=== PATIENT | male | born 1955 | race Caucasian/White ===

== ENCOUNTER 2018-12-08 | Inpatient (IN) ==
[2018-12-08] MEDS ORDERED: DUONEB NEB STA (00:10)
[2018-12-08] MEDS ORDERED: SOLU-MEDROL 125 MG IVP STA (00:10)
--- NOTE | 2018-12-08 00:17 | ED.PDOC ---
General ED Provider: Dr. CAROLYN BACA Chief Complaint: Shortness of Air Stated Complaint: Shortness of breath x 2 weeks but suddenlty got worse just prior to arrival with cough productive of thick green/yellow sputum, also complains of chills. Time Seen by Physician: 00:15 Mode of Arrival: Walk-In Information Source: Patient Exam Limitations: No limitations Nursing and Triage Documentation Reviewed and Agree: Yes Does patient meet sepsis criteria?: No System Inflammatory Response Syndrome: Not Applicable Sepsis Protocol: For patient's 13 years and over: Temp is 96.8 and below OR 101 and greater Pulse >90 BPM Resp >20/minute Acutely Altered Mental Status Are patient's symptoms suggestive of a new infection, such as: -Pneumonia -Skin, Soft Tissue -Endocarditis -UTI -Bone, Joint Infection -Implantable Device -Acute Abdominal Infection -Wound Infection -Meningitis -Blood Stream Catheter Infection -Unknown Review of Systems - Review Of Systems Constitutional: Reports: No symptoms Eyes: Reports: No symptoms Ears, Nose, Mouth, Throat: Reports: No symptoms Respiratory: Reports: Cough, Short of air, Wheezing Cardiac: Reports: No symptoms GI: Reports: No symptoms : Reports: No symptoms Musculoskeletal: Reports: No symptoms Skin: Reports: No symptoms Neurological: Reports: No symptoms Endocrine: Reports: No symptoms Hematologic/Lymphatic: Reports: No symptoms All Other Systems: Reviewed and Negative Past Medical History - Past Medical History Previously Healthy: Yes Endocrine: Reports: DM 2, Dyslipidemia Cardiovascular: Reports: CAD, Hypertension, A-Fib Respiratory: Reports: COPD Hematological: Reports: None Gastrointestinal: Reports: GERD Genitourinary: Reports: Kidney stones Neuro/Psych: Reports: None Musculoskeletal: Reports: None Cancer: Reports: None - Surgical History General Surgical History: Reports: Stent (2), Back Surgery, Other (lipotripsy, hemorrhoid,), Unknown - Family History Family History: Reports: Unknown - Social History Smoking Status: Current every day smoker, Heavy tobacco smoker Hx Substance Use: No Alcohol Screening: None - Immunizations Tetanus Shot up to Date: Yes Physical Exam - Physical Exam Appearance: Ill-appearing, Obese Ill-appearing: Severe Pain Distress: Moderate Eyes: JESS, EOMI, Conjunctiva clear Neck: Supple Respiratory: Crackles, Wheezes Cardiovascular: RRR, Pulses normal GI/: Soft, Nontender, No masses, Bowel sounds normal, No Organomegaly Musculoskeletal: Normal strength, ROM intact, No edema, No calf tenderness Skin: Warm Neurological: Sensation intact, Motor intact, Alert, Oriented Psychiatric: Anxious Interpretation - Radiology Interpretation Radiology Interpretation By: Radiologist Radiology Results: Positive Exam Interpreted: Portable CXR Xray Comments: Bilateral Pneumonitis - Risk Management Internship Time of Risk Management Internship Interpretation: 00:20 Rate: Normal Rhythm: Sinus Ectopy: PVCs Re-Evaluation - Re-Evaluation Time of Re-Evaluation: 01:57 Status: Improved Vital Signs Stable: Yes (sat 94 % on 2 liters NC ) Lungs: Other (improved movement of air) Neuro: Alert and Oriented X3 Physician Notification - Case Discussed Physician Notified: Dr manzo Time of Notification: 01:44 (Accepted for Admission ) Critical Care Note - Critical Care Note Total Time (mins): 45 Course - Course Hematology/Chemistry: 12/08/18 00:20 12/08/18 00:20 Orders, Labs, Meds: Lab Review 12/08/18 12/08/18 12/08/18 00:10 00:20 00:20 WBC 16.00 H RBC 5.66 Hgb 16.8 Hct 49.7 MCV 87.8 MCH 29.7 MCHC 33.8 RDW Coeff of Tere 14.5 Plt Count 376 Immature Gran % (Auto) 2.3 Neut % (Auto) 59.3 Lymph % (Auto) 26.9 Kimble % (Auto) 10.7 H Eos % (Auto) 0.1 Baso % (Auto) 0.7 Immature Gran # (Auto) 0.4 Neut # (Auto) 9.5 H Lymph # (Auto) 4.3 H Kimble # (Auto) 1.7 Eos # (Auto) 0.0 Baso # (Auto) 0.1 Puncture Site Rb O2 Saturation 91.0 L ABG pH 7.370 ABG pCO2 38.4 ABG pO2 63.0 L ABG HCO3 22.2 ABG Total CO2 23 ABG Base Excess -3 L Zachary Test + FiO2 % 21.0 Sodium 133.1 L Potassium 4.56 Chloride 99.1 Carbon Dioxide 21.8 L Anion Gap 16.76 BUN 25.1 H Creatinine 0.69 Estimated GFR (MDRD) 116.00 BUN/Creatinine Ratio 36.37 Glucose 129.7 H Lactic Acid Calcium 9.59 Total Bilirubin 1.06 AST 29.3 ALT 36.1 Alkaline Phosphatase 88.8 Total Creatine Kinase 151.8 CK-MB (CK-2) 6.450 H* CK-MB (CK-2) % 4.2400 Troponin I < 0.012 Total Protein 7.75 Albumin 3.89 Globulin 3.86 Albumin/Globulin Ratio 1.00 Procalcitonin Influ A Molecular Assay Influ B Molecular Assay 12/08/18 12/08/18 12/08/18 00:20 00:45 01:01 WBC RBC Hgb Hct MCV MCH MCHC RDW Coeff of Tere Plt Count Immature Gran % (Auto) Neut % (Auto) Lymph % (Auto) Kimble % (Auto) Eos % (Auto) Baso % (Auto) Immature Gran # (Auto) Neut # (Auto) Lymph # (Auto) Kimble # (Auto) Eos # (Auto) Baso # (Auto) Puncture Site O2 Saturation ABG pH ABG pCO2 ABG pO2 ABG HCO3 ABG Total CO2 ABG Base Excess Zachary Test FiO2 % Sodium Potassium Chloride Carbon Dioxide Anion Gap BUN Creatinine Estimated GFR (MDRD) BUN/Creatinine Ratio Glucose Lactic Acid 1.61 Calcium Total Bilirubin AST ALT Alkaline Phosphatase Total Creatine Kinase CK-MB (CK-2) CK-MB (CK-2) % Troponin I Total Protein Albumin Globulin Albumin/Globulin Ratio Procalcitonin 0.17 Influ A Molecular Assay Negative by naat Influ B Molecular Assay Negative by naat Orders Category Date Time Status ABG DRAW REQUEST Routine CARDIO 12/08/18 00:10 Ordered EKG-(ED ONLY) Stat CARDIO 12/08/18 00:07 Ordered NEBULIZER TREATMENT Routine CARDIO 12/08/18 01:53 Ordered NEBULIZER TREATMENT Stat CARDIO 12/08/18 00:11 Ordered NEBULIZER TREATMENT Stat CARDIO 12/08/18 01:53 Ordered OXYGEN Routine CARDIO 12/08/18 01:48 Ordered ACTIVITY .Early Mobilization for VTE Prevention CARE 12/08/18 01:48 Ordered BLOOD GLUCOSE MONITORING 0630,1100,1700,2100 CARE 12/08/18 01:49 Ordered GIVE HS SNACK 2100 CARE 12/08/18 01:48 Ordered INTAKE & OUTPUT Q8HR CARE 12/08/18 01:48 Ordered VITAL SIGNS Q4HR CARE 12/08/18 01:48 Ordered ADA 1800 RENETTA. DIET DIETARY 12/08/18 Breakfast Ordered HS SNACK DIETARY 12/08/18 Dinner Ordered ED IV/MEDIPORT/POWERPORT .ONCE EMERGENCY 12/08/18 00:38 Active ABG Stat LAB 12/08/18 00:10 Completed BASIC METABOLIC PANEL DAILY@0600 LAB 12/08/18 06:00 Ordered BASIC METABOLIC PANEL DAILY@0600 LAB 12/09/18 06:00 Ordered BLOOD CULTURE (ED ONLY) Stat LAB 12/08/18 00:45 Received CBC W/ AUTO DIFF DAILY@0600 LAB 12/08/18 06:00 Ordered CBC W/ AUTO DIFF DAILY@0600 LAB 12/09/18 06:00 Ordered CBC W/ AUTO DIFF Stat LAB 12/08/18 00:20 Completed COMPREHENSIVE METABOLIC PANEL Stat LAB 12/08/18 00:20 Completed CREATINE KINASE Stat LAB 12/08/18 00:20 Completed FLU A/B MOLECULAR Stat LAB 12/08/18 01:01 Completed LACTIC ACID Stat LAB 12/08/18 00:45 Completed MOLECULAR GROUP A STREP Stat LAB 12/08/18 01:01 Completed PROCALCITONIN Stat LAB 12/08/18 00:20 Completed TROPONIN I Stat LAB 12/08/18 00:20 Completed 0.9 % Sodium Chloride [Saline Flush] MEDS 12/08/18 00:38 Ordered 1 syr IVF PRN PRN Acetaminophen [Tylenol] MEDS 12/08/18 01:48 Ordered 650 mg PO Q4H PRN Albuterol Sulfate 0.083% Neb [Albuterol 0.083% Neb] MEDS 12/08/18 02:00 Ordered 1 vial NEB RTQ4H Ceftriaxone Sodium [Rocephin] 1 gm MEDS 12/08/18 09:00 Ordered 0.9 % Sodium Chloride [Sodium Chloride] 50 ml IV DAILY Ceftriaxone Sodium [Rocephin] 1 gm MEDS 12/08/18 01:46 Ordered 0.9 % Sodium Chloride [Sodium Chloride] 50 ml IV ONCE Doxycycline Hyclate MEDS 12/08/18 02:00 Ordered 100 mg PO Q12HR Ipratropium Alma 0.02% Neb [Atrovent 0.02% Neb] MEDS 12/08/18 09:00 Ordered 1 vial NEB QID Ipratropium/Albuterol Neb [Duoneb] MEDS 12/08/18 00:10 Discontinued 1 vial NEB ONCE STA Methylprednisolone Sod Succ/Pf [Solu-Medrol 125 mg] MEDS 12/08/18 00:10 Discontinued 125 mg IVP ONCE STA Ondansetron HCl/Pf [Zofran 4 mg/2 ml] MEDS 12/08/18 01:48 Ordered 4 mg IVP Q6H PRN RESUSCITATION STATUS Routine OTHERS 12/08/18 01:48 Ordered CHEST, 2 VIEWS PA & LAT Stat RADS 12/08/18 00:07 Completed Medications Generic Name Dose Route Start Last Admin Trade Name Rajan PRN Reason Stop Dose Admin Acetaminophen 650 mg 12/08/18 01:48 Tylenol PO Q4H PRN fever or mild pain Albuterol Sulfate 1 vial 12/08/18 02:00 Albuterol 0.083% Neb NEB RTQ4H SCARLET Doxycycline Hyclate 100 mg 12/08/18 02:00 Doxycycline Hyclate PO 12/11/18 01:59 Q12HR SCARLET Ceftriaxone Sodium 1 gm/ 50 mls @ 75 mls/hr 12/08/18 01:46 12/08/18 01:55 Sodium Chloride IV 12/08/18 02:25 75 mls/hr ONCE STA Administration Ceftriaxone Sodium 1 gm/ 50 mls @ 75 mls/hr 12/08/18 09:00 Sodium Chloride IV 12/11/18 08:59 DAILY SCARLET Ipratropium Alma 1 vial 12/08/18 09:00 Atrovent 0.02% Neb NEB QID SCARLET Ondansetron HCl 4 mg 12/08/18 01:48 Zofran 4 Mg/2 Ml IVP Q6H PRN Nausea / Vomiting Sodium Chloride 1 syr 12/08/18 00:38 12/08/18 01:56 Saline Flush IVF 1 syr PRN PRN Administration To flush IV Discontinued Medications Generic Name Dose Route Start Last Admin Trade Name Rajan PRN Reason Stop Dose Admin Albuterol/Ipratropium 1 vial 12/08/18 00:10 12/08/18 00:50 Duoneb NEB 12/08/18 00:11 1 vial ONCE STA Administration Methylprednisolone Sodium Succinate 125 mg 12/08/18 00:10 12/08/18 00:37 Solu-Medrol 125 Mg IVP 12/08/18 00:11 125 mg ONCE STA Administration Vital Signs: Temp Pulse Resp BP Pulse Ox 12/08/18 00:01 97.3 F L 86 36 H 147/72 H 87 L Departure - Departure Time of Disposition: 02:15 Disposition: ADMITTED INPATIENT Discharge Problem: Pneumonia Qualifiers: Pneumonia type: due to unspecified organism Laterality: bilateral Lung location : unspecified part of lung Qualified Code(s): J18.9 - Pneumonia, unspecified organism Condition: Fair Pt referred to PMD for follow-up: Yes IPMP verified?: No Allergies/Adverse Reactions: Allergies amitriptyline HCl [From Elavil] Adverse Reaction (Verified 12/08/18 00:09) "I GO NUTS" Home Medications: Ambulatory Orders Aspirin [Aspirin EC] 81 mg PO DAILYWM 05/15/15 Atenolol 25 mg PO DAILY 05/15/15 Budesonide/Formoterol Fumarate [Symbicort 160-4.5 Mcg Inhaler] 2 puff INH BID Dabigatran Etexilate Mesylate [Pradaxa] 150 mg PO BID 05/15/15 Fenofibrate Nanocrystallized [Fenofibrate] 145 mg PO BEDTIME 05/15/15 Hydrocodone/Acetaminophen [Hydrocodon-Acetaminophn 10-325] 10 - 325 mg PO TID Lisinopril 2.5 mg PO QPM 05/15/15 Metformin HCl [Metformin HCl ER] 1,000 mg PO BID 05/15/15 Omeprazole [Prilosec] 20 mg PO QDAC 05/15/15 Pravastatin Sodium [Pravachol] 20 mg PO DAILY 05/15/15 Tadalafil [Cialis] 5 mg PO QID PRN 05/15/15 Albuterol Sulfate [Ventolin Hfa] 2 inh IH QID 12/08/18 Diltiazem HCl [Diltiazem ER] 180 mg PO BEDTIME 12/08/18 Gabapentin 400 mg PO TID 12/08/18 Icosapent Ethyl [Vascepa] 2 gm PO BID 12/08/18 Insulin Detemir [Levemir] 45 unit SUBCUT BID 12/08/18 Liraglutide [Victoza 2-Kike] 1.8 mg SQ DAILY 12/08/18 Umeclidinium Alma [Incruse Ellipta] 1 inh IH DAILY 12/08/18
--- NOTE | 2018-12-08 01:03 | DI ---
Exam: Chest two-view History: Shortness of breath FINDINGS: Normal cardiomediastinal contours. Normal pulmonary vasculature. Bilateral subtle reticu lar nodular opacities. No focal consolidative change. No chest wall abnormality. Impression: Bilateral reticular nodular opacities favoring pneumonitis. Follow-up recommended.
[2018-12-08] MEDS ORDERED: ROCEPHIN 1 GM in SODIUM CHLORIDE 50 ML IV STA (01:46)
[2018-12-08] MEDS ORDERED: ZOFRAN 4 MG/2 ML IVP PRN (01:48)
[2018-12-08] MEDS ORDERED: TYLENOL PO PRN ×2 (01:48→09:27)
[2018-12-08] MEDS ORDERED: ROCEPHIN ONE (01:52)
[2018-12-08] MEDS: ALBUTEROL 0.083% NEB NEB SCH ×6 (02:20→21:00)
[2018-12-08] MEDS: DOXYCYCLINE HYCLATE PO SCH ×3 (02:29→20:29)
[2018-12-08 02:34] VITALS: BMI 35.4
[2018-12-08] MEDS: PRILOSEC PO SCH (05:54)
[2018-12-08] MEDS: ATROVENT 0.02% NEB NEB SCH ×4 (07:34→21:00)
--- NOTE | 2018-12-08 07:51 | PCM ---
- Chief Complaint Chief Complaint: SOA, Wheezing - History of Present Illness History of Present Illness: 63 yo CM patient of MEMO Jerome Burger presented to [facility] on 00:[address] Roberts in the ER w/ c/o SOA, worsening breathing x 2 weeks, suddenly worse prior to arrival. Thick green mucus, chills, weakness. Temp noted 97.3, pulse 86, RR 36, BP 147/72, Pulse ox 87%. He is NOT normally on HOme O2. WBC noted to be 16, hgb 16.8, plt 376, 10.7% monocytes, 9.5# Neutrophils, 4.3% lymphocytes. Molecular Flu and strep were both negative. Lactic acid 1.61, procalcitonin 0.17 both of which negative. Blood cultures ordered. CXR completed and Bilateral reticular nodular opacities favoring pneumonitis. CMP showed sodium 133.1, K+ 4.56, co2 21.8, BUN 25., Cr 0.69 GFR 116 and doing well. Glucose 129.7, no A1C ordered for DM, I have ordered this. Calcium normal 9.59. Alk phos 88.8 normal, ast and alt normal 29.3 and 36.1. KCMB was elevated at 6.450. I will complete enzymes. He is already on pradaxa. Verbal discussion with DR. Roberts at 0137 12/08/18 I discussed EKG and he noted it was NSR, no issues. I asked if he noted any S1Q3T3 he noted no, no e /o right heart strain. Patient had ABG o2 saturation 91, pH 7.370, Pc02 38.4, P02 63, Hc03 22.2 and co2 23, fio2 21%. Independent interpretation of this ABG suggests primary metabolic acidosis w/ appropriately compensated respiratory alkalosis. With values, he did meet SIRS criteria, based on RR >20, WBC >12 at least. He was not febrile and his HR was fine. Dr. Roberts and I discussed his exam findings over phone and he noted moderate pain, ill appearing obese male with crackles/wheezes, normal CV exam, normal MSK exam, normal Neuro exam, Psych anxious. I talked w/ DR. Roberts about starting Ceftriaxone 1gram daily, Doxy 100 BID as I would prefer to not use levaquin unless absolutely needed. I will check sputum gram stain, he has no known history of colonization w/ MRSA, no recent flu like illness, molecular flu negative, unknown if abx in last 90 days, no empyema on CXR, no ESRD, no e/o structural lung disease. I have thus chosen to use antipneumococcal empiric regimen of doxy plus ceftriaxone. I have not been able to see QTC and it was not reported to me. He is on telemetry but I will use doxy instead of azithromycin. Meds reviewed w/ DR. Roberts over phone we will continue metformin as no IV contrast was given. We will hold his victoza, his omega acid as these are not on formulary. I will change his levemir to lantus to work with our formulary. Again no A1C ordered, I ordered this. No sputum culture ordered, I ordered this. I also asked for urine, when available for strep pneumo ag and legionella Ag. P.O.R.T Score through ER was 83 points risk class III 0.9-2.8% mortality. Outpatient or inpatient treatment depending on clinical judgement was reviewed. Patient has hypoxic respiratory failure and presented to ED, Inpatient admission was warranted, IV abx warranted. CURB65 2 points moderate risk group 6.8% 30 day mortality, recommended inpatient treatment and since his provider is not in this town, close f/u is questionable and inpatient treatment for 1-2 days would be warranted. Discussed admission with ER team, patient admitted to room 119. Talked with patient at 8:00 this am. Discussed dx of CAP requires infiltrate on CXR w/ fever/dyspnea and sputum production, sometimes pleuritic chest pain. 80% have fever (patient does not as is typical of older patients and low temp w / diurnal fluctuations in am), RR >24 which patient does have (45-70%), is the most sensitive sign in older patients. He reports worsening cough, worsening sputum production and CH, Orthopnea, no PND. He meets criteria for COPD exacerbation and this would warrant doxy. CXR showed pneumonitis, which may or may not reflect an early pneumonia. I will add the cephalosporin as noted above. Lengthy discussion with patient and with son Jerome today. Patient has not seen pulm in 2 years. 53+ pack year history. Heavy tobacco starting age 10. Up to 2ppd for decades. Son notes all he does is drink coffee and smoke. His CMP is okay as noted. He has no e/o mass on CXR. Unknown colonoscopy. Recommended spirometry. All he wants to do is to be able to breath better. He is not using oxgen at home. We will test this while he is here. D/W patient plan for discharge 24-48 hours. Obtained EKG, personally visualized, some artifact, some PVC, no S1Q3T3 phenomenon, no acute ST/T changes. Disagreed with computer about anterior infarct. He has no pain in chest. - Review of Systems Constitutional: fever, chills, weakness, sweats, fatigue, loss of appetite Eyes: No: blurred vision, double-vision, discharge, itching, pain, redness, photophobia Ears: other. No: pain, bleeding, drainage, ringing, hearing loss Nose: congestion, discharge. No: bleeding Throat: pain. No: swelling, voice change Mouth: No: bleeding, pain, swelling, other Respiratory: cough, shortness of air, wheeze, pain with breathing. No: hemoptysis Cardiovascular: chest pain (with deep breaths. ), orthopnea. No: left arm pain , diaphoresis, PND, edema, palpitations, syncope, other Gastrointestinal: nausea. No: abdominal pain, vomiting, diarrhea, melena, hematemesis, hematochezia, dysphagia, constipation, other Genitourinary: No: dysuria, hematuria, frequency, incontinence, flank pain, penile discharge, testicular pain, testicular swelling, other Neurological: headache (frontal 3/10 no radiation, no photophobia, no phonophobia. ). No: dizziness, seizure, numbness, weakness, speech difficulty, problems with walking, tremor, fainting, other Musculoskeletal: pain (low back). No: swelling in joints, other Skin: No: rash, pruritus, lacerations, wounds, bruising, other Immunology: No: hives, itching, frequent infections, difficulty healing, other Hematology: easy bruising (on pradaxa). No: easy bleeding, swollen glands, other Endocrine: No: weight changes, cold intolerance, heat intolerance, excessive thirst, excessive hunger, polyuria, other Psychiatric: No: depression, anxiety, sleeplessness, hopelessness, suicidal, hallucinations, other - Past Medical History Past Medical History: DM 2 insulin dependent, obesity BMI 35.5, hyperlipidemia mixed type, CAD, A-Fib, chronic anticoagulation, Essential HTN, COPD, GERD, Nephrolithiasis. - Past Surgical History Past Surgical History: Cardiac stent x 2, back surgery, lithotripsy, hemorrhoid surgery. - Allergies Allergies/Adverse Reactions: Allergies Allergy/AdvReac Type Severity Reaction Status Date / Time amitriptyline HCl AdvReac "I GO NUTS" Verified 12/08/18 00:09 [From [facility]] - Medications Medications: Medications Generic Name Dose Route Start Last Admin Trade Name Freq PRN Reason Stop Dose Admin Acetaminophen 650 mg 12/08/18 01:48 12/08/18 07:18 Tylenol PO 650 mg Q4H PRN Administration fever or mild pain Hydrocodone Bitart/Acetaminophen 1 tab 12/08/18 09:00 Opp 10-325 PO TID SCARLET Albuterol Sulfate 1 vial 12/08/18 02:00 12/08/18 05:29 Albuterol 0.083% Neb NEB 1 vial RTQ4H SCARLET Administration Aspirin 81 mg 12/08/18 08:00 Aspirin Ec PO DAILYWM SCARLET Atenolol 25 mg 12/08/18 09:00 Tenormin PO DAILY COUNT INCLUDES THE [facility] Budesonide/Formoterol Fumarate 2 puff 12/08/18 09:00 Symbicort 160-4.5 Mcg Inhaler IH BID SCARLET Dabigatran 150 mg 12/08/18 09:00 Pradaxa PO Q12HR SCARLET Diltiazem HCl 180 mg 12/08/18 21:00 Cardizem Cd PO BEDTIME SCARLET Doxycycline Hyclate 100 mg 12/08/18 02:00 12/08/18 02:29 Doxycycline Hyclate PO 12/11/18 01:59 100 mg Q12HR SCARLET Administration Fenofibrate 160 mg 12/08/18 21:00 Triglide PO BEDTIME SCARLET Gabapentin 100 mg 12/08/18 09:00 Neurontin PO TID SCARLET Gabapentin 300 mg 12/08/18 09:00 Neurontin PO TID COUNT INCLUDES THE [facility] Ceftriaxone Sodium 1 gm/ 50 mls @ 75 mls/hr 12/08/18 21:00 Sodium Chloride IV 12/11/18 20:59 BEDTIME COUNT INCLUDES THE [facility] Insulin Detemir 45 unit 12/08/18 09:00 Levemir SUBCUT BID SCARLET Ipratropium [place] 1 vial 12/08/18 07:30 12/08/18 07:34 Atrovent 0.02% Neb NEB 1 vial RTQID SCARLET Administration Lisinopril 2.5 mg 12/08/18 17:00 Zestril PO QPM SCARLET Metformin HCl 1,000 mg 12/08/18 08:00 Glucophage PO BIDWM SCARLET Non-Formulary Medication 2 gm 12/08/18 09:00 Icosapent Ethyl [Vascepa] PO BID SCARLET Non-Formulary Medication 1.8 mg 12/08/18 09:00 Liraglutide [Victoza 2-Kike] SUBCUT DAILY SCARLET Non-Formulary Medication 1 inh 12/08/18 09:00 Umeclidinium [place] [Incruse Ellipta] IH DAILY SCARLET Omeprazole 20 mg 12/08/18 06:30 12/08/18 05:54 Prilosec PO 20 mg QDAC SCARLET Administration Ondansetron HCl 4 mg 12/08/18 01:48 Zofran 4 Mg/2 Ml IVP Q6H PRN Nausea / Vomiting Pravastatin Sodium 20 mg 12/08/18 09:00 Pravachol PO DAILY COUNT INCLUDES THE [facility] Sodium Chloride 1 syr 12/08/18 00:38 12/08/18 01:56 Saline Flush IVF 1 syr PRN PRN Administration To flush IV - Family History Past Family History: mother CAD, HTN, hyperlipidemia, Father CAD/IN. Sister CAD, numerous other unknown problems. Son Jerome turner, daugther mariluz griffith. - Social History Past Social History: Lives alone. Heavy tobacco smoker. 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 - Body Composition Height: 5 ft 5 in Weight: 213 lb 2.992 oz Body Mass Index (BMI): 35.4 - Physical Examination HEENT: Temp Pulse Resp BP Pulse Ox 12/08/18 05:38 97.8 F 79 22 155/78 H 90 L 12/08/18 03:18 96 12/08/18 02:17 96.8 F L 78 18 95 12/08/18 02:03 97.9 F 82 23 166/82 H 96 12/08/18 00:01 97.3 F L 86 36 H 147/72 H 87 L Constitutional: Appearance-No acute distress, No accessory muscle use, tachypnic, grumpy, irritable. He was curious why during encounter I washed my hands x3 with search planner, I noted I touched stuff and wanted to keep him safe, he called me a germophobe and I noted I was a [id number] and he laughed. Consistent with stated age. He was able to converse in complete sentences, ate 100% of his meal noted "edible." Orientation- Oriented x 3, alert Build and Nutrition-[obese male] General- cooperative with the interview and exam. Integumentary: General-No rashes, ulcers or lesions. Palpation- Normal skin moisture/turgor. Skin is warm to touch, appropriate. Capillary refill is normal bilateral Upper and lower extremity. Bilateral feet with prominent callus, some claw toes, hypertrophic nails. Full skin exam completed, no e/o breakdown. Nurse Kathy present in room. Head/Neck: Head- normocephalic and atraumatic. Neck- without visible/palpable lumps or pulsations. Palpation- No bony tenderness about head/neck along frontal, occipital, temporal, parietal, mastoid, jawline, zygoma, orbit or any other location. NO temporal artery tenderness. No TMJ tenderness. Neck Supple. Thyroid-No thyromegaly, no nodules Eye: Bilaterally PERRLA, EOMI. No discharge. Upper and lower eyelids are normal. Sclera/conjunctiva normal without discharge. Cornea is normal and clear. Lens is normal. Eyeball appears normal. No ciliary flushing, no conjunctival injection. ENMT: Pinna- normal without tenderness or erythema. External auditory canal Left- normal without erythema or discharge, no excessive cerumen. External auditory canal Right-normal without erythema or discharge, no excessive cerumen. TM left- Pool/pearly, normal light reflex and anatomy TM Right- Pool/ pearly, normal light reflex and anatomy Hearing Assessment-normal to conversational speech. Nose and sinus- No sinus tenderness along frontal/ maxillary region. External appearance normal and midline. Nares- bilateral quiet airflow, no discharge. Nasal mucosa- No bleeding noted and no ulcerations observed. ERythematous Turbinates boggy. Lips- normal color, moist without cracks/lesions Oral Cavity/Palate- hard/soft palate intact without lesions, oral mucosa pink and moist. Dentition assessed missing teeth, broken teeth, poor repair. Tongue normal midline. Oropharynx- pharyngeal erythema, mallampati score class III-IV. post nasal drip. No exudate. Salivary glands- Non tender to palpation CHEST/LUNG: Inspection- symmetric chest wall no pectus deformity. Mild pursed lip breathing, mild barrell chest. Tachypnic, mild distress, no use of accessory muscles. Palpation- nontender sternum, ribline. No abnormal pulsations. Auscultation- Breath sounds coarse/diminished throughout all lung torres. Tracheal sounds, bronchial sounds overlying sternum, Bronchovessicular sounds between scapulae posteriorly, vessicular breath sounds heard throughout periphery similar scattered wheezes/rhonchi. NO egophany, no whispered pectoriloquy, no e/o consolidation. Adventitious sounds- wheezes, rales/ crackles LLL>RLL but bibasilar, rhonchi present bilaterally. CARDIOVASCULAR: Carotid artery- normal, no bruits or abnormal pulsations. Jugular vein- no pulsations. Palpation/Percussion- Normal PMI, no palpable thrill Auscultation- Regular rate and rhythm. No murmur noted in sitting, supine positions. Extremities- + digital clubbing, NO cyanosis, edema, or increased warmth. ABDOMEN: Inspection- normal and no visible pulsations. Normal contour. Auscultation- Bowel sounds normal, no abdominal bruits. Palpation/Percussion- soft, non-tender, no rebound tenderness, no rigidity (guarding), no jar tenderness, no masses. Liver-no hepatomegaly, Spleen no splenomegaly, Hernias - none. Rectal not examined. Peripheral Vascular: Upper extremity Left- Normal temperature with pink nailbeds and no ulcerations. Upper extremity Right- Normal temperature with pink nailbeds and no ulcerations. Lower extremity- Normal temperature with pink nailbeds and no ulcerations. DP pulses 2+ bilaterally. Pedal hair intact. Normal capillary refill. Edema- No edema. Foot health is poor, needs podiatry /nails/callus/feet. Musculoskeletal: Generalized-No generalized swelling or edema of extremities, + digital clubbing w/o cyanosis. neurovascularly intact all four extremities. Upper extremity- Symmetrical posture. No visible deformity. Normal sensation along medial and lateral upper extremity proximally and distally. NO tenderness overlying shoulder, lateral/medial epicondyle. Pump Servicer Supervisor 5/5 and strength 5/5 bilateral UE. Elbow palpated, no tenderness overlying olecranon. Normal supination, pronation to active/passive ROM and to resisted rotation. Bicep insertion/tricep insertion appear normal without obvious pathology. Rotator cuff evaluated and intact. Normal wrist ROM bilaterally. Normal hand movement, intrinsic muscles of hands normal. No tenderness to palpation of hands/wrists/ elbows. Lower extremity- Hip: Not tender to palpation, no pain, no swelling, edema or erythema of surrounding tissue, normal strength and tone. Normal appearing hip ROM bilaterally without pain. Knee: Knee ROM normal. No tenderness overlying trochanters, no tenderness about patella, quad tendon, patellar tendon. No tenderness at tibial tuberosity. Ankle: normal ROM not tender to palpation along medial/lateral malleolus. Foot: Normal movement of toes, no tenderness bilateral feet/toes. Normal foot type. Prominent callus, onychomycosis. Spine/Ribs- Scar lumbar spine. tenderness paraspipnal thoracic and lumbar. Neurological: General- Moves all 4 extremities symmetrically. Symmetrical face and body posture. Cranial nerves- individually evaluated II-XII and intact. PERRLA, Normal EOMI, visual/special senses appear intact, Face is symmetrical and normal sensation/movement, normal tongue, normal strength/posture of neck musculature. Reflexes- intact with DTR 2+ patellar, Achilles, bicep, brachial, tricep. Ankle clonus normal with 2 beats. Strength- 5/5 bilateral UE and LE. Soft touch- intact bilateral UE and LE. Temperature sensation- intact bilateral UE and LE. Neuropsych: Oriented- Person, place, time. (AAOx3), Mood/affect- Grumpy/ irritable but normal and congruent. Able to articulate well. Speech-Normal speech, normal rate, normal tone, normal use of language, volume and coherence. Thought content- normal with ability to perform basic computations and apply abstract thought/reason. Associations- intact, no SI/HI, no hallucinations, delusions, obsessions. Judgment/insight- Appropriate. Memory-Recall intact, remote and recent memory intact. Knowledge- Age appropriate fund of knowledge, concentration and attention span normal. Lymphatic: Head/Neck- normal size and non tender to palpation. Axillary- normal size and non tender to palpation. Femoral and Inguinal- normal size and non tender to palpation. - Lab/Tests/Diagnostic Imaging Lab/Tests/Diagnostic Imaging: Laboratory Last Values WBC 16.00 K/ul (4.2-10.2) H 12/08/18 00:20 RBC 5.66 10^6/ul (4.70-6.10) 12/08/18 00:20 Hgb 16.8 g/dl (14.0-18.0) 12/08/18 00:20 Hct 49.7 % (42.0-52.0) 12/08/18 00:20 MCV 87.8 fl (80.0-94.0) 12/08/18 00:20 MCH 29.7 pg (27.0-31.0) 12/08/18 00:20 MCHC 33.8 (31.8-35.4) 12/08/18 00:20 RDW Coeff of Tere 14.5 % (11.6-14.8) 12/08/18 00:20 Plt Count 376 10^3/uL (140-440) 12/08/18 00:20 Immature Gran % (Auto) 2.3 % (0.0-5.0) 12/08/18 00:20 Neut % (Auto) 59.3 12/08/18 00:20 Lymph % (Auto) 26.9 (10.0-50.0) 12/08/18 00:20 [place] % (Auto) 10.7 (0-10) H 12/08/18 00:20 Eos % (Auto) 0.1 % (0.0-7.0) 12/08/18 00:20 Baso % (Auto) 0.7 % (0.0-3.0) 12/08/18 00:20 Immature Gran # (Auto) 0.4 (0.0-1.0) 12/08/18 00:20 Neut # (Auto) 9.5 K/ul (2.0-6.9) H 12/08/18 00:20 Lymph # (Auto) 4.3 K/uL (0.60-3.4) H 12/08/18 00:20 [place] # (Auto) 1.7 K/uL (0.4-2.0) 12/08/18 00:20 Eos # (Auto) 0.0 K/ul (0.0-0.7) 12/08/18 00:20 Baso # (Auto) 0.1 K/uL (0-0.2) 12/08/18 00:20 Puncture Site Rb 12/08/18 00:10 O2 Saturation 91.0 % (95-100) L 12/08/18 00:10 ABG pH 7.370 (7.35-7.45) 12/08/18 00:10 ABG pCO2 38.4 mmHg (35-45) 12/08/18 00:10 ABG pO2 63.0 mmHg (85-100) L 12/08/18 00:10 ABG HCO3 22.2 (22.0-26.0) 12/08/18 00:10 ABG Total CO2 23 (22.0-28.0) 12/08/18 00:10 ABG Base Excess -3 (-2.0-2.0) L 12/08/18 00:10 Zachary Test + 12/08/18 00:10 FiO2 % 21.0 % 12/08/18 00:10 Sodium 133.1 mmol/L (134.5-145) L 12/08/18 00:20 Potassium 4.56 mmol/L (3.5-5.1) 12/08/18 00:20 Chloride 99.1 mmol/L (98-107) 12/08/18 00:20 Carbon Dioxide 21.8 mmol/L (22-30.0) L 12/08/18 00:20 Anion Gap 16.76 12/08/18 00:20 BUN 25.1 mg/dL (9-20) H 12/08/18 00:20 Creatinine 0.69 mg/dL (0.60-1.10) 12/08/18 00:20 Estimated GFR (MDRD) 116.00 mL/min 12/08/18 00:20 BUN/Creatinine Ratio 36.37 12/08/18 00:20 Glucose 129.7 mg/dL (74-106) H 12/08/18 00:20 Hemoglobin A1c 8.35 (4.0-6.0) H 12/08/18 00:20 Lactic Acid 1.61 mmol/L (0.7-2.1) 12/08/18 00:45 Calcium 9.59 mg/dL (8.4-10.2) 03/24/19 00:20 Total Bilirubin 1.06 mg/dL (0.2-1.3) 12/08/18 00:20 AST 29.3 U/L (17-59) 12/08/18 00:20 ALT 36.1 U/L (0-50) 12/08/18 00:20 Alkaline Phosphatase 88.8 U/L (56-119) 12/08/18 00:20 Total Creatine Kinase 151.8 U/L (55-170) 12/08/18 00:20 CK-MB (CK-2) 6.450 ng/ml (0.0-2.38) H* 12/08/18 00:20 CK-MB (CK-2) % 4.2400 12/08/18 00:20 Troponin I < 0.012 ng/ml (0.0000-0.120) 12/08/18 00:20 Total Protein 7.75 g/dL (6.3-8.2) 12/08/18 00:20 Albumin 3.89 g/dL (3.5-5.0) 12/08/18 00:20 Globulin 3.86 12/08/18 00:20 Albumin/Globulin Ratio 1.00 12/08/18 00:20 Procalcitonin 0.17 ng/mL (<0.05) 12/08/18 00:20 Influ A Molecular Assay Negative by naat (NEGATIVE) 12/08/18 01:01 Influ B Molecular Assay Negative by naat (NEGATIVE) 12/08/18 01:01 ABG: primary metabolic acidosis with appropriately compensated respiratory alkalosis CXR: Bilateral reticular nodular opacities favoring pneuomnitis. F/U recommended - Assessment (1) COPD exacerbation Status: Acute Code(s): J44.1 - CHRONIC OBSTRUCTIVE PULMONARY DISEASE W (ACUTE ) EXACERBATION SNOMED Code(s): 397757230 (2) SIRS (systemic inflammatory response syndrome) Status: Acute Code(s): R65.10 - SIRS OF NON-INFECTIOUS ORIGIN W/O ACUTE ORGAN DYSFUNCTION SNOMED Code(s): 380123878 (3) Pneumonitis Status: Acute Code(s): J18.9 - PNEUMONIA, UNSPECIFIED ORGANISM SNOMED Code(s ): 936971230 (4) Insulin dependent diabetes mellitus Status: Chronic Code(s): E11.9 - TYPE 2 DIABETES MELLITUS WITHOUT COMPLICATIONS; Z79.4 - MCC (CURRENT) USE OF INSULIN SNOMED Code(s): 69116274 (5) Elevated CK-MB level Status: Acute Code(s): R74.8 - ABNORMAL LEVELS OF OTHER SERUM ENZYMES SNOMED Code(s): 200344369 (6) Leukocytosis Status: Acute Code(s): D72.829 - ELEVATED WHITE BLOOD CELL COUNT, UNSPECIFIED SNOMED Code(s): 702734619, 037496160 (7) Elevated blood pressure reading Status: Acute Code(s): R03.0 - ELEVATED BLOOD-PRESSURE READING, W/O DIAGNOSIS OF HTN SNOMED Code(s): 07590015 (8) Chronic back pain Status: Chronic Code(s): M54.9 - DORSALGIA, UNSPECIFIED SNOMED Code(s): 687057686 Qualifiers: Back pain location: low back pain Back pain laterality: bilateral Sciatica presence: with sciatica (9) Chronic anticoagulation Status: Chronic Code(s): Z79.01 - MCC (CURRENT) USE OF ANTICOAGULANTS SNOMED Code(s): 186210047 (10) Intermittent atrial fibrillation Status: Chronic Code(s): I48.0 - PAROXYSMAL ATRIAL FIBRILLATION SNOMED Code( s): 398024578 (11) Mixed hyperlipidemia Status: Chronic Code(s): E78.2 - MIXED HYPERLIPIDEMIA SNOMED Code(s): 087242916 (12) Smokes 2 packs of cigarettes per day Status: Acute Code(s): F17.210 - NICOTINE DEPENDENCE, CIGARETTES, UNCOMPLICATED SNOMED Code(s): 446797047 (13) GERD (gastroesophageal reflux disease) Status: Acute Code(s): K21.9 - GASTRO-ESOPHAGEAL REFLUX DISEASE WITHOUT ESOPHAGITIS SNOMED Code(s): 692435974 - Plan Plan: COPD exacerbation (Acute)/ Pneumonitis (Acute)/SIRS (systemic inflammatory response syndrome) (Acute): Suspect acute COPD exacerbation by history and exam. We reviewed smoking history. Smoking cessation and tobacco avoidance highly encouraged today (both active and passive). We reviewed GOLD criteria. Gold defines exacerbation of COPD as acute event leading to worsening of respiratory symptoms with 3 cardinal features: increased cough freq/severity, sputum production volume/quality, worsened Dyspnea. He meets all 3. Risk factors for exacerbations include advancing age, duration of COPD, history of abx use, prev hospitalization within past 12 months, mucus production, comorbidities to include heart disease, CHF, DM, and exposures. Respiratory infections are the most likely trigger in up to 70% of cases to include viral processes such as Rhino (warmer months), penny, adeno, parainfluenza (cooler months), allergic process, viral/bacterial pneumonia. Studies have shown benefit to bronchodilators (grade 1B) and show reduced time to resolution of cough. Anticholinergic agents are often used in combination as studies show enhanced bronchodilation beyond that seen by either agent alone. Caution advised if any history of BPH or similar in male patients. No report of urinary issues. Systemic glucocorticoids have been shown to have beneficial effect. We will continue these and watch BG. Recommendations include dosing steroid equivalent to prednisone 40 mg daily x 5 days. Inhaled GC are of minimal benefit in acute exacerbation, but should not be stopped. Thus symbicort continued. We discussed that studies suggest use of abx is controversial. These are recommended to be avoided for simple bronchitis. However with PORT score/Curb65 score and CXR I will use them to cover for pneumococcal illness. 2 weeks cough/URI worsening, I will tx with abx. Role of alpha 1 antitrypsin discussed with diagnosis. Yearly spirometry encouraged. Would like spirometry in 1-2 months since not done within past 12 months. - Admit to inpatient status - Triple step oxygen to be completed while here to eval for need for home O2. - Consider home health at d/c. Will have phys therapy eval while here. - RT notified Albuterol Q4H PRN, Ipratropium mixed in QID> - Rocephin 1 Gram daily IV (day 1/5) - Doxy 100 PO BID (Day 1/5): discussed take with full glass of water. - Prednisone: 40mg q day x 5 days. start today (methylprednisolone x1 given in ER). - Mucinex can be of benefit R/B/A d/w patient. -Tobacco avoidance discussed specifically, declined nicoderm. - Reviewed LAMA, LABA, GC, TOMAS agents. - Tele - I+O q shift - Vitals Q shift. - sputum culture - Blood culture - Urine ag testing. Chronic anticoagulation (Acute): Continue to use pradaxa, no s/sx of bleeding. In rhythm at present. Elevated CK-MB level (Acute): Repeat In 12 hours. Troponin negative. Unknown etiology. Elevated blood pressure reading (Acute): On Marlon-I lisinopril 2.5mg daily, cardizem ER 180mg bedtime, atenolol 25 mg daily. - Monitor. - If BP remains elevated may increase lisinopril to 5mg daily. Intermittent atrial fibrillation (Acute): In rhythm at present, chronic anticoag , rate control with diltiazem ER daily. Telemetry is on board. Monitor. - Continue to monitor - Tele - Continue home meds. Leukocytosis (Acute): REpeat CBC tomorrow Chronic back pain (Chronic): Resume home norco. Tylenol limit 2G per day. Insulin dependent diabetes mellitus (Chronic): Check A1C. Needs to meet with podiatry as outpatient. Continue metformin. Continue levemir (IT IS ON FORMULARY ). Unless someone can bring the victoza, I will stop this and use sliding scale insulin while in hospital. Qachs accucheck. - A1C GERD: continue prilosec. Mixed hyperlipidemia (Chronic): Continue pravastatin, hold the vascepa. DVT Prophy: Continue home pradaxa Heavy Tobacco User: NOt interested in nicotine patches. Offered/declined. Tobacco Cessation discussed today for 2 minutes. We reviewed lifestyle choices and discussed quitting. Ready to quit status discussed. The risks and hazards of continued tobacco abuse were discussed with the patient today and total tobacco cessation as recommended. It was clearly and unambiguously explained that continued tobacco usage will adversely affect overall morbidity and mortality of the patient. Patient was informed that tobacco use can lead to numerous cancers, worsening of cardiovascular and pulmonary systems and that lung damage is often permanent and irreversible. I advised the patient to inform me if any further assistance is requested, as we can offer counseling services, nicotine replacement inhaled, patch, lozenge, gum, or prescription medications to include Chantix or Wellbutrin for assistance. I will reassess the interest in tobacco cessation at the next and all subsequent visits. Diet: ADA Diabetic 1800 kcal Activity: Up with assist Code Status: DNR POA: Unknown Living Will: Unknown Dispo: Discussed with his current symptoms, port score, O2 upon arrival and respiratory failure that he may stay for total of 2-3 days. Nebs albuterol q 4 hours, ipratropium QID. At home on symbicort 2 puffs BID, appropriate. No recent pulm eval. WOuld recommend f/u with PCP in 1 week, consider meeting with pulm and getting spirometry in 1 month and alpha 1 antrypsin testing. He is not interested in nicotine patches, he is not interested in quitting smoking 53 years of tobacco 2 ppd for a lot of that may be close to 80-100 pack year history. I discussed if he was serious about this that he needed to work on tobacco. He needs routine screening, consider low dose lung CT. Close f/u with PCP regarding DM, CAD, HTN, Hyperlipidemia. He did not know last A1C. We will check this while here. Reviewed above with patient. I will add SSI while in hospital. He and I had good discussion today, he feels his PCP is helping. We talked about the incruse he does not know if he is still on that. We will consider giving him a spiriva respimat sample if needed until he can get back onto the incruse from PCP. >70 minutes spent on H+P discussion with patient, son, Dr. Roberts, reviewing ER records/labs/imaging, independent review of ABG, orders, med rec and interview with patient. This time does not include documentation time. New patient presented in respiratory failure. Meets inpatient criteria.
[2018-12-08] MEDS: ASPIRIN EC PO SCH (08:36)
[2018-12-08] MEDS: NORCO 10-325 PO SCH ×3 (08:36→20:30)
[2018-12-08] MEDS: GLUCOPHAGE PO SCH ×2 (08:37→16:34)
[2018-12-08] MEDS: NEURONTIN PO SCH ×6 (08:37→20:30)
[2018-12-08] MEDS: PRADAXA PO SCH ×2 (08:38→20:30)
[2018-12-08] MEDS: PRAVACHOL PO SCH (08:38)
[2018-12-08] MEDS: SYMBICORT 160-4.5 MCG INHALER IH SCH ×2 (08:38→20:33)
[2018-12-08] MEDS: TENORMIN PO SCH (08:38)
[2018-12-08] MEDS: LEVEMIR SUBCUT SCH ×2 (08:42→20:27)
[2018-12-08] MEDS ORDERED: NON-FORMULARY MEDICATION (Icosapent Ethyl [Vascepa] 2 GM) PO SCH (09:00)
[2018-12-08] MEDS ORDERED: NON-FORMULARY MEDICATION (Dabigatran Etexilate Mesylate [Pradaxa] 150 MG) PO SCH (09:00)
[2018-12-08] MEDS ORDERED: UMECLIDINIUM BROMIDE IH SCH (09:00)
[2018-12-08] MEDS ORDERED: NON-FORMULARY MEDICATION (Metformin Hcl [Metformin Hcl Er] 1,000 MG) PO SCH (09:00)
[2018-12-08] MEDS ORDERED: NON-FORMULARY MEDICATION (Gabapentin [Gabapentin] 400 MG) PO SCH (09:00)
[2018-12-08] MEDS ORDERED: NON-FORMULARY MEDICATION (Liraglutide [Victoza 2-Pak] 1.8 MG) SUBCUT SCH (09:00)
[2018-12-08] MEDS: PREDNISONE PO SCH (12:38)
[2018-12-08] MEDS: HUMULIN R SUBCUT PRN ×2 (12:40→16:40)
[2018-12-08] MEDS: ZESTRIL PO SCH (16:33)
[2018-12-08] MEDS ORDERED: NON-FORMULARY MEDICATION (Lisinopril [Lisinopril] 2.5 MG) PO SCH (17:00)
[2018-12-08] MEDS: ROCEPHIN 1 GM in SODIUM CHLORIDE 50 ML IV SCH (20:27)
[2018-12-08] MEDS: CARDIZEM CD PO SCH (20:29)
[2018-12-08] MEDS: TRIGLIDE PO SCH (20:30)
[2018-12-08] MEDS ORDERED: DILTIAZEM HCL 180 MG PO SCH (21:00)
[2018-12-08] MEDS ORDERED: NON-FORMULARY MEDICATION (Fenofibrate Nanocrystallized [Fenofibrate] 145 MG) PO SCH (21:00)
[2018-12-09] MEDS: ALBUTEROL 0.083% NEB NEB SCH ×6 (00:53→21:20)
[2018-12-09] MEDS: ATROVENT 0.02% NEB NEB SCH ×4 (04:43→21:20)
[2018-12-09] MEDS: PRILOSEC PO SCH (05:55)
[2018-12-09] MEDS: HUMULIN R SUBCUT PRN ×3 (06:11→21:25)
--- NOTE | 2018-12-09 07:35 | PCM.PROG ---
Subjective: 63 yo WM HD #2. I reviewed nursing notes from 12/08/18 and it appears he has been quite non compliant with hospital care. He has removed oxygen numerous times, has removed pulse ox, has removed telemetry and has been found SOA and hypoxic. He has refused insulin sliding scale, sugars have elevated. With his non compliance, utilizing steroids will be difficult, reasonable hospital stay will be difficult. He has complained about pain, family has c/o pain but not focusing much on the DM or the COPD. I have him on #2 abx, this is day 2 of IV Rocephin 1 Gram Daily and doxycycline 100 mg PO BID. He is on 40mg prednisone daily. WBC this am has increased from 16 to 20.14, hgb up to 17.8 from 16.8 but plt down to 336 from 370. CMP showed 133.7 sodium with glucose 241.9, which corrects to 135.97. Potassium appeared mildly elevated at 5.19, cl 100.2. BUN 28.7 and Cr 0.51 and stable. Calcium stable at 9.27. CK repeat was normal and much lower at 89.6 and troponin #2 remained negative. I contacted the lab about the values and I asked them if they were hemolyzed and they said yes and I asked if they could please repeat CBC/CMP. At 7:35 this am, I had conversation with son, sister and two other female family members. I discussed the vitals BG 128/206/181/190/253, he was given 3 units insulin 12:40, 1 unit 16 :40 and 3 units 06:11 this am. He has had 4V unmeasured. Tem 97-97.8. BP up this am 184/94 and 182/94 at 0448 they thought that this was incorrect, manually checked it and 136/88 at 5:26. )2 yesterday 90-99. Tele has been refused by patient. I walked into room, son was angry. I asked what he was angry about and he noted that you cannot have a man that has been without oxygen for 60 years just all of a sudden be expected to wear oxygen. I discussed that we have this on him to maintain his oxygen as he cannot do it himself. Even while sitting in room his oxygen was in his mouth. I asked him about it and he said the oxygen around his nose was as useless as a "tit on a boar hog." He said he cannot breath through his nose. I noted that his O2 has been fine when he wears it. He got angry and put it back on. I asked if he wanted a nicotine patch, "Why would I replace a poison with a poison?" I noted that we are not doing that but withdrawal can be problematic and we are trying to help with those symptoms. He said after labs he would just go outside and smoke 1/2 cigarette and he would be fine. I noted I could not let him leave, I would not allow him to go smoke, we are a smoke free campus and that if he left the hospital he has left AMA. Family in room heard this. He got more angry with me. Son walked out of the room "I am just going to go smoke." Family noted that son is upset to see his father sick and that this has been hard on him. I noted that it makes it even more difficult for me to care for their family member when I cannot monitor the problems that they have such as atypical heart rhythms. He is on meds that can cause sugars to elevated, which makes it difficult to catch up if refusing insulin. If not wearing oxygen, it makes it difficult to maintain oxygen status. Family notes he is stubborn, he will not change and he will resume smoking heavily when going home. Talked with family/patient this am, overnight nurse this am, case management this am and lab this am. REVIEW OF SYMPTOMS: (Positives bolded) General: weight loss, fever, chills, night sweats, fatigue, appetite loss HEENT: blurry vision, eye pain, eye discharge, dry eyes, decreased vision, sore throat tinnitus, bloody nose, hearing loss, sinus pain/pressure, ear pain/ pressure. Respiratory: shortness of breath, cough, hemoptysis, wheezing, pleurisy, Cardiovascular: chest pain, PND, palpitation, edema, orthopnea, syncope, swelling of extremities Gastro: Nausea, vomiting, diarrhea, hematemesis, abdominal pain, constipation Genito: hematuria, dysuria, glycosuria, hesitancy, frequency, incontinence Musckelo: Arthralgia, myalgia, (chronic) muscle weakness, joint swelling, NSAID use Skin: rash, pruritis, sores, nail changes, skin thickening, change in wart/mole , itching, rash, new lesions, pruritus, nail changes Neuro: Migraine, numbness, ataxia, tremor, vertigo, weakness, memory loss, Irritability, dizziness Endocrine: excessive thirst, polyuria, cold intolerance, heat intolerance, goiter, Elevated glucose Psychiatric: depression, anxiety, anti-depressants, alcohol abuse, drug abuse, insomnia, change in sleep pattern and mood changes Heme/lymph: easy bruising (Chronic anticoagulation), bleeding gums, blood clots , swollen glands, lymphedema, Allergic/immune: allergic rhinitis, hay fever, asthma, hives Objective: Vital Signs - 24 hr 12/08/18 12/08/18 12/08/18 09:49 13:42 13:49 Temperature 97.7 F Pulse Rate 74 Respiratory 20 Rate Blood Pressure 124/68 O2 Sat by Pulse 98 98 91 L Oximetry 12/08/18 12/09/18 12/09/18 21:39 04:48 04:54 Temperature 97.0 F L 97.4 F L Pulse Rate 88 85 Respiratory 22 24 Rate Blood Pressure 143/81 H 184/94 H 182/94 H O2 Sat by Pulse 94 L 99 Oximetry 12/09/18 05:26 Temperature Pulse Rate Respiratory Rate Blood Pressure 136/88 O2 Sat by Pulse 93 L Oximetry Constitutional: Appearance-Still w/o acute distress, more talkative this am, grumpier, angrier. Breathing comfortably sitting in bedside chair. No accessory muscle use, Orientation- Oriented x 3, alert Build and Nutrition-[ obese male] General- cooperative with the interview and exam but angry/ irritable. Integumentary: Bilateral feet with prominent callus, some claw toes, hypertrophic nails. ENMT: Nares- bilateral quiet airflow, no discharge. Nasal mucosa- No bleeding noted and no ulcerations observed. ERythematous Turbinates boggy. Lips- normal color, moist without cracks/lesions Oral Cavity/Palate- hard/soft palate intact without lesions, oral mucosa pink and moist. Dentition assessed missing teeth, broken teeth, poor repair. Tongue normal midline. Oropharynx- pharyngeal erythema, mallampati score class III-IV. post nasal drip. No exudate. Salivary glands- Non tender to palpation CHEST/LUNG: Inspection- symmetric chest wall no pectus deformity. Still having mild pursed lip breathing, barrel chest. No obvious distress this am, no use of accessory muscles. Palpation- nontender sternum, ribline. No abnormal pulsations. Auscultation- Breath sounds coarse/diminished throughout all lung torres. Better than yesterday. MOre talkative. Tracheal sounds, bronchial sounds overlying sternum, Bronchovessicular sounds between scapulae posteriorly , vessicular breath sounds heard throughout periphery similar scattered wheezes/ rhonchi. Adventitious sounds- wheezes, rales/crackles throughout, rhonchi present bilaterally. CARDIOVASCULAR: Carotid artery- normal, no bruits or abnormal pulsations. Jugular vein- no pulsations. Palpation/Percussion- Normal PMI, no palpable thrill Auscultation- Regular rate and rhythm. No murmur noted in sitting, supine positions. Extremities- + digital clubbing, NO cyanosis, edema, or increased warmth. ABDOMEN: Inspection- normal and no visible pulsations. Normal contour. Auscultation- Bowel sounds normal, no abdominal bruits. Palpation/Percussion- soft, non-tender, no rebound tenderness, no rigidity (guarding), no jar tenderness, no masses. Liver-no hepatomegaly, Spleen no splenomegaly, Hernias - none. Rectal not examined. Peripheral Vascular: Upper extremity Left- Normal temperature with pink nailbeds and no ulcerations. Upper extremity Right- Normal temperature with pink nailbeds and no ulcerations. Lower extremity- Normal temperature with pink nailbeds and no ulcerations. DP pulses 1+ bilaterally. Pedal hair reduced. Normal capillary refill. Edema- No edema. Foot health is poor, needs podiatry/nails/callus/feet. Musculoskeletal: Generalized-No generalized swelling or edema of extremities, + digital clubbing w/o cyanosis. neurovascularly intact all four extremities. Spine/Ribs- Scar lumbar spine. tenderness paraspipnal thoracic and lumbar. Neurological: General- Moves all 4 extremities symmetrically. Symmetrical face and body posture. Cranial nerves- individually evaluated II-XII and intact. PERRLA, Normal EOMI, visual/special senses appear intact, Face is symmetrical and normal sensation/movement, normal tongue, normal strength/posture of neck musculature. Neuropsych: Oriented- Person, place, time. (AAOx3), Mood/affect- Even more Grumpy/irritable this am. Able to articulate. Uses a lot of metaphors. Speech- Normal speech, normal rate, normal tone, normal use of language, volume and coherence. Thought content- normal with ability to perform basic computations and apply abstract thought/reason. Associations- intact, no SI/HI, no hallucinations, delusions, obsessions. Judgment/insight- Appropriate. Memory- Recall intact, remote and recent memory intact. Knowledge- Age appropriate fund of knowledge, concentration and attention span normal. Lymphatic: Head/Neck- normal size and non tender to palpation. Axillary- normal size and non tender to palpation. Femoral and Inguinal- normal size and non tender to palpation. Laboratory Last Values WBC 20.14 K/ul (4.2-10.2) H 12/09/18 04:43 RBC 6.03 10^6/ul (4.70-6.10) 12/09/18 04:43 Hgb 17.8 g/dl (14.0-18.0) 12/09/18 04:43 Hct 53.3 % (42.0-52.0) H 12/09/18 04:43 MCV 88.4 fl (80.0-94.0) 12/09/18 04:43 MCH 29.5 pg (27.0-31.0) 12/09/18 04:43 MCHC 33.4 (31.8-35.4) 12/09/18 04:43 RDW Coeff of Tere 14.9 % (11.6-14.8) H 12/09/18 04:43 Plt Count 336 10^3/uL (140-440) 12/09/18 04:43 Immature Gran % (Auto) Manager Metal 12/09/18 04:43 Neut % (Auto) Manager Metal 12/09/18 04:43 Lymph % (Auto) Manager Metal 12/09/18 04:43 [place] % (Auto) Manager Metal 12/09/18 04:43 Eos % (Auto) Manager Metal 12/09/18 04:43 Baso % (Auto) Manager Metal 12/09/18 04:43 Immature Gran # (Auto) Manager Metal 12/09/18 04:43 Neut # (Auto) Manager Metal 12/09/18 04:43 Lymph # (Auto) Manager Metal 12/09/18 04:43 [place] # (Auto) Manager Metal 12/09/18 04:43 Eos # (Auto) Manager Metal 12/09/18 04:43 Baso # (Auto) Manager Metal 12/09/18 04:43 Neutrophils % (Manual) 70.0 % (42.2-75.2) 12/09/18 04:43 Lymphocytes % (Manual) 23.0 % (10.0-50.0) 12/09/18 04:43 Monocytes % (Manual) 5.0 % (0.0-10.0) 12/09/18 04:43 Metamyelocytes % 2.0 % (0.0-2.0) 12/09/18 04:43 Anisocytosis Not present (NOT PRESENT) 12/09/18 04:43 Puncture Site Rb 12/08/18 00:10 O2 Saturation 91.0 % (95-100) L 12/08/18 00:10 ABG pH 7.370 (7.35-7.45) 12/08/18 00:10 ABG pCO2 38.4 mmHg (35-45) 12/08/18 00:10 ABG pO2 63.0 mmHg (85-100) L 12/08/18 00:10 ABG HCO3 22.2 (22.0-26.0) 12/08/18 00:10 ABG Total CO2 23 (22.0-28.0) 12/08/18 00:10 ABG Base Excess -3 (-2.0-2.0) L 12/08/18 00:10 Zachary Test + 12/08/18 00:10 FiO2 % 21.0 % 12/08/18 00:10 Sodium 133.7 mmol/L (134.5-145) L 12/09/18 04:43 Potassium 5.19 mmol/L (3.5-5.1) H 12/09/18 04:43 Chloride 100.2 mmol/L (98-107) 12/09/18 04:43 Carbon Dioxide 23.0 mmol/L (22-30.0) 12/09/18 04:43 Anion Gap 15.69 12/09/18 04:43 BUN 28.7 mg/dL (9-20) H 12/09/18 04:43 Creatinine 0.51 mg/dL (0.60-1.10) L 12/09/18 04:43 Estimated GFR (MDRD) 164.00 mL/min 12/09/18 04:43 BUN/Creatinine Ratio 56.27 12/09/18 04:43 Glucose 241.9 mg/dL (74-106) H 12/09/18 04:43 Hemoglobin A1c 8.35 (4.0-6.0) H 12/08/18 00:20 Lactic Acid 1.61 mmol/L (0.7-2.1) 12/08/18 00:45 Calcium 9.27 mg/dL (8.4-10.2) 12/09/18 04:43 Total Bilirubin 1.06 mg/dL (0.2-1.3) 12/08/18 00:20 AST 29.3 U/L (17-59) 12/08/18 00:20 ALT 36.1 U/L (0-50) 12/08/18 00:20 Alkaline Phosphatase 88.8 U/L (56-119) 12/08/18 00:20 Total Creatine Kinase 89.6 U/L (55-170) 12/08/18 13:20 CK-MB (CK-2) 6.450 ng/ml (0.0-2.38) H* 12/08/18 00:20 CK-MB (CK-2) % 4.2400 12/08/18 00:20 Troponin I < 0.012 ng/ml (0.0000-0.120) 12/08/18 13:20 Total Protein 7.75 g/dL (6.3-8.2) 12/08/18 00:20 Albumin 3.89 g/dL (3.5-5.0) 12/08/18 00:20 Globulin 3.86 12/08/18 00:20 Albumin/Globulin Ratio 1.00 12/08/18 00:20 Procalcitonin 0.17 ng/mL (<0.05) 12/08/18 00:20 Influ A Molecular Assay Negative by naat (NEGATIVE) 12/08/18 01:01 Influ B Molecular Assay Negative by naat (NEGATIVE) 12/08/18 01:01 LABS FOR CBC/CMP THIS AM BEING REPEATED DUE TO HEMOLYZED STATUS> (1) COPD exacerbation Status: Acute Code(s): J44.1 - CHRONIC OBSTRUCTIVE PULMONARY DISEASE W (ACUTE ) EXACERBATION SNOMED Code(s): 849321920 (2) SIRS (systemic inflammatory response syndrome) Status: Resolved Code(s): R65.10 - SIRS OF NON-INFECTIOUS ORIGIN W/O ACUTE ORGAN DYSFUNCTION SNOMED Code(s): 680320155 (3) Pneumonitis Status: Acute Code(s): J18.9 - PNEUMONIA, UNSPECIFIED ORGANISM SNOMED Code(s ): 510182652 (4) Insulin dependent diabetes mellitus Status: Chronic Code(s): E11.9 - TYPE 2 DIABETES MELLITUS WITHOUT COMPLICATIONS; Z79.4 - [facility] (CURRENT) USE OF INSULIN SNOMED Code(s): 97729927 (5) Elevated CK-MB level Status: Resolved Code(s): R74.8 - ABNORMAL LEVELS OF OTHER SERUM ENZYMES SNOMED Code(s): 458295370 (6) Leukocytosis Status: Acute Code(s): D72.829 - ELEVATED WHITE BLOOD CELL COUNT, UNSPECIFIED SNOMED Code(s): 854845283 (7) Elevated blood pressure reading Status: Acute Code(s): R03.0 - ELEVATED BLOOD-PRESSURE READING, W/O DIAGNOSIS OF HTN SNOMED Code(s): 26840410 (8) Chronic back pain Status: Chronic Code(s): M54.9 - DORSALGIA, UNSPECIFIED SNOMED Code(s): 103125995 (9) Chronic anticoagulation Status: Chronic Code(s): Z79.01 - ENVIRONMENTAL PROJECTS ADVISOR (CURRENT) USE OF ANTICOAGULANTS SNOMED Code(s): 739464431 (10) Intermittent atrial fibrillation Status: Chronic Code(s): I48.0 - PAROXYSMAL ATRIAL FIBRILLATION SNOMED Code( s): 823540555 (11) Mixed hyperlipidemia Status: Chronic Code(s): E78.2 - MIXED HYPERLIPIDEMIA SNOMED Code(s): 232483003 (12) Smokes 2 packs of cigarettes per day Status: Chronic Code(s): F17.210 - NICOTINE DEPENDENCE, CIGARETTES, UNCOMPLICATED SNOMED Code(s): 419047315 (13) GERD (gastroesophageal reflux disease) Status: Chronic Code(s): K21.9 - GASTRO-ESOPHAGEAL REFLUX DISEASE WITHOUT ESOPHAGITIS SNOMED Code(s): 138671950 Plan: COPD exacerbation (Acute)/ Pneumonitis (Acute)/SIRS (systemic inflammatory response syndrome) (Acute): Patient has been marginally compliant with oxygen, angry this am that I brought it up. He is refusing telemetry, I discussed these sensors are there to help us monitor for problems/complications. HE does not want nicoderm patch, he wants to go smoke, as noted in HPI, I told him I could not let him do that. If he leaves hospital, he has left AMA. HE was not pleased with that answer. I do not know yet about the CBC/CMP, these are being reprocessed as the samples were hemolyzed. CK and Trop remain stable, his O2 has remained >90. He remains afebrile and he is much more talkative today. He feels better today. - Continue Admission inpatient status - Triple step oxygen to be completed today to eval for need for home O2. - Consider home health at d/c. Will have phys therapy eval while here. - RT notified Albuterol Q4H PRN, Ipratropium mixed in QID> - Rocephin 1 Gram daily IV (day 2/5) - Doxy 100 PO BID (Day 2): discussed take with full glass of water. - Prednisone: 40mg q day x 5 days. ( Day 2) - Mucinex can be of benefit R/B/A d/w patient. -Tobacco avoidance discussed specifically, declined nicoderm again today - Reviewed LAMA, LABA, GC, TOMAS agents. - Tele declined by patient, this has not been d/c, nor will it. Patient has chosen not to wear the service we are offering. - I+O q shift - Vitals Q shift. - sputum culture - Blood culture (negative so far) - Urine ag testing. (pending) Chronic anticoagulation (Acute): Continue to use pradaxa, no s/sx of bleeding. In rhythm at present to auscultation. - Tele offered, declined by patient. Elevated CK-MB level (Acute): Troponin negative again, CK down, no CK MB given as CK was reduced. Elevated blood pressure reading (Acute): On Marlon-I lisinopril 2.5mg daily, cardizem ER 180mg bedtime, atenolol 25 mg daily. Unknown etiology for 184 SBP this am. Nursing notes it was inaccurate and when checked manually it was fine. I asked for documentation to this fact to be added to the notice. - Monitor. - If BP remains elevated may increase lisinopril to 5mg daily. Intermittent atrial fibrillation (Acute): In rhythm at present, chronic anticoag , rate control with diltiazem ER daily. Telemetry is now not on board as patient refuses to wear this. Discussed R/B/A to being able to monitor for dangerous heart rhythms. We will continue to monitor. - Continue to monitor - Tele offered and declined by patient. - Continue home meds. Leukocytosis (Acute): Repeat CBC now as current labs appear hemolyzed and samples need to be redrawn. Chronic back pain (Chronic): Resume home norco. Tylenol limit 2G per day. Insulin dependent diabetes mellitus (Chronic): A1C above recommended goal. Discussed I need him to work with my insulin regimen as he is on steroids that can cause the sugars to elevate. He wants to do this his way, does not want our way. He refused insulin once. I discussed that I need him to try to allow my nurses to do their jobs to better control sugars. They are not controlled at present/before hospitalization and I would encourage him to f/u with PCP as outpatient. - accucheck w/ correctional insulin. GERD: continue prilosec. Mixed hyperlipidemia (Chronic): Continue pravastatin, hold the vascepa. DVT Prophy: Continue home pradaxa Heavy Tobacco User: NOt interested in nicotine patches. Offered/declined again today. He wanted to go smoke. I noted if he left I would have to say he left hospital AMA> He was angry but noted understanding. Does not want to exchange one poison for another. WE discussed nicotine today. He is not interested in patches. Diet: ADA Diabetic 1800 kcal Activity: Up with assist Code Status: DNR POA: Unknown Living Will: Unknown Dispo: Lengthy discussion today about o2, using this as recommended and to consider tele. he does not want tele. Son was not happy with me today, did not want to talk any more, walked out angry. Family talked with me more after son left. The patient is not used to being sick, not used to being unable to self fend and this is hard on him. I noted we were working on getting him to be breathing better and working as best as we could. We are addressing BP, addressing breathing. WBC is markedly elevated. We will reassess in the am. Family liked the idea. Plan for d/c in 1-2 days. 40 minutes face to face time discussing the case with family today. Checked on patient again at 17:30 and he was sitting in bedside, food consumed. I asked how his meal was "Edible" is what he noted. He is not using oxygen, he noted it was in the bed. he has been non compliant with oxygen, refuses telemetry leads, pulse ox. I discussed plan to consider home tomorrow. "NO I still don't have my breath." I will do a home health consult at discharge. They may only be able to come in a few days at a time. He is refusing oxygen and the above interventions, I cannot warrant keeping him in hospital. BP has been running higher than typical. He is on pradaxa, no s/sx of bleeding. I will increase lisinopril to 5 mg from 2.5mg. I will order a three step-oxygen in am. I will consider eval by phys therapy in hospital. He did not want this today.
[2018-12-09] MEDS: GLUCOPHAGE PO SCH ×2 (08:26→17:26)
[2018-12-09] MEDS: DOXYCYCLINE HYCLATE PO SCH ×2 (08:26→21:23)
[2018-12-09] MEDS: PRAVACHOL PO SCH (08:27)
[2018-12-09] MEDS: PRADAXA PO SCH ×2 (08:27→21:23)
[2018-12-09] MEDS: NORCO 10-325 PO SCH ×3 (08:27→21:24)
[2018-12-09] MEDS: NEURONTIN PO SCH ×6 (08:27→21:23)
[2018-12-09] MEDS: PREDNISONE PO SCH (08:27)
[2018-12-09] MEDS: ASPIRIN EC PO SCH (08:27)
[2018-12-09] MEDS: TENORMIN PO SCH (08:27)
[2018-12-09] MEDS: LEVEMIR SUBCUT SCH ×2 (08:27→21:24)
[2018-12-09] MEDS: SYMBICORT 160-4.5 MCG INHALER IH SCH ×2 (09:43→21:22)
[2018-12-09] MEDS: ZESTRIL PO SCH ×2 (17:25→21:34)
[2018-12-09] MEDS ORDERED: ZESTRIL PO SCH (18:23)
[2018-12-09] MEDS: CARDIZEM CD PO SCH (21:23)
[2018-12-09] MEDS: ROCEPHIN 1 GM in SODIUM CHLORIDE 50 ML IV SCH (21:23)
[2018-12-09] MEDS: TRIGLIDE PO SCH (21:24)
[2018-12-10] MEDS: ALBUTEROL 0.083% NEB NEB SCH ×7 (01:15→23:55)
[2018-12-10] MEDS: ATROVENT 0.02% NEB NEB SCH ×4 (05:15→21:40)
[2018-12-10] MEDS: PRILOSEC PO SCH (05:42)
--- NOTE | 2018-12-10 08:07 | PCM.PROG ---
Subjective: 63 yr old hospital day 3 w/ COPD exacerbation and bilateral pneumonitis. Patient is angry, irritable and not happy with his strength. He has been non compliant with oxygen, taking it off nose and putting it into his mouth. Refuses telemetry, refuses to wear pulse ox as well. Reviewed ON nursing notes. Yesterday there were issues completely labs due to poor vascular access. This was repeated due to hemolyzed status. The patient has markedly elevated WBC 20.14, hgb 17.8, plt 336. Rerun WBC 25.05, hgb 17.2, plt 560. Sodium 134.4, K+ 4.28, cl 99.4, cr 0.59, glucse 217.3, calcium 9.74 yesterday. I have ordered CBC/CMP this am. Vitals reviewed 158/75, 149/74, 152/85 as last few BP. I increased his lisinopril to 5mg last night from the 2.5mg he was on. Temp 97.4-98.3. He is on 3L O2. Voids not recorded, he is refusing telemetry. Accuchecks 253/156/214/243/123. Taking levemir 45 BID. He received 3 units of insulin 0611, 1726 and 2125 yesterday. Case management and I talked with patient today. He is adamantly against MT. He notes he is weaker than a kitten and wants me to give him energy. He wants me to check his vitamins. I noted that we will not check those as there is no indication, I discussed the labs we have checked and he said that is what he meant. He notes no Energy. He had been trying to get to hospital x 2 weeks before visit here and he has no Energy. I tried to d/w patient R/B/A to MT care, "NOPE, DON"T WANT IT." HE then noted he did not appreciate I was trying to explain to him that it could help him. I told him I was not trying to get him to MT but wanted to offer what was available as he would benefit from pulmonary rehab. NO recent PFT. He is not currently capable of doing them. I have scheduled 3step O2 today. I will get him meds for home nebulizer machine and try to set him up with home O2. He notes his son will help him, lives in apartment next door that he furnishes and that he will have help with groceries etc. I discussed that we are nearing the point of maximal hospital optimized care. He does feel he is breathing better. He is getting daily rocephin 1gram IV and getting Doxy 100 PO BID. He is drinking adequately. I will add 100ml NS today just to make sure that BP is not dehydrational and see if that provides a little more energy. Sugars have been up due to the steroids. We are correcting these. His A1C was >8 before arrival suggesting a need for further f /u with PCP to titrate/adjust medications. The patient has smoked ~100 pack years. He is not wanting nicotine, he told me yesterday he was going out to smoke and got angry when I said if he left to smoke it would be leaving hospital AMA. As we talked, he got more angry and his breathing rate increased. NO audible wheezing, talking in complete sentences. Using numerous metaphors in his speech. TELE ordered (declined by patient). Case management and I discussed care with patient today. Rocephin 1Gram IV Day 11/19 Doxycycline 100mg PO Day 11/19 REVIEW OF SYMPTOMS: (Positives bolded) General: weight loss, fever, chills, night sweats, fatigue, appetite loss, NO ENERGY HEENT: blurry vision, eye pain, eye discharge, dry eyes, decreased vision, sore throat tinnitus, bloody nose, hearing loss, sinus pain/pressure, ear pain/ pressure. Respiratory: shortness of breath, cough, hemoptysis, wheezing, pleurisy, Cardiovascular: chest pain, PND, palpitation, edema, orthopnea, syncope, swelling of extremities Gastro: Nausea, vomiting, diarrhea, hematemesis, abdominal pain, constipation Genito: hematuria, dysuria, glycosuria, hesitancy, frequency, incontinence Musckelo: Arthralgia, myalgia, (chronic) muscle weakness, joint swelling, NSAID use Skin: rash, pruritis, sores, nail changes, skin thickening, change in wart/mole , itching, rash, new lesions, pruritus, nail changes Neuro: Migraine, numbness, ataxia, tremor, vertigo, weakness, memory loss, Irritability, dizziness Endocrine: excessive thirst, polyuria, cold intolerance, heat intolerance, goiter, Elevated glucose Psychiatric: depression, anxiety, anti-depressants, alcohol abuse, drug abuse, insomnia, change in sleep pattern and mood changes Heme/lymph: easy bruising (Chronic anticoagulation), bleeding gums, blood clots , swollen glands, lymphedema, DIFFICULT VASCULAR ACCESS. Allergic/immune: allergic rhinitis, hay fever, asthma, hives Objective: Vital Signs - 24 hr 12/09/18 12/09/18 12/09/18 10:00 14:00 21:48 Temperature 98.3 F 98.1 F Pulse Rate 73 79 Respiratory 26 H 20 Rate Blood Pressure 158/75 H 149/74 H O2 Sat by Pulse 91 L 96 97 Oximetry 12/10/18 05:09 Temperature 97.5 F L Pulse Rate 83 Respiratory 18 Rate Blood Pressure 152/85 H O2 Sat by Pulse 94 L Oximetry Constitutional: Appearance-Still w/o acute distress, more talkative this am, grumpier, angrier each day that I try to talk with him about future/options. Breathing lying supine, lab tried to stick him in RUE but unable to. No accessory muscle use, Orientation- Oriented x 3, alert Build and Nutrition-[ obese male] General- Adamant against NH. As we talked about it his RR increased. Integumentary: Bilateral feet with prominent callus, some claw toes, hypertrophic nails. No edema. ENMT: Nares- bilateral quiet airflow, no discharge. Nasal mucosa- No bleeding noted and no ulcerations observed. Erythematous Turbinates boggy. Lips- normal color, moist without cracks/lesions Oral Cavity/Palate- hard/soft palate intact without lesions, oral mucosa pink and moist. Dentition assessed missing teeth, broken teeth, poor repair. Tongue normal midline. Oropharynx- pharyngeal erythema, mallampati score class III-IV. post nasal drip. No exudate. Salivary glands- Non tender to palpation CHEST/LUNG: Inspection- symmetric chest wall no pectus deformity. Still having mild pursed lip breathing, barrel chest. No obvious distress this am, no use of accessory muscles until he became visibly agitated. Palpation- nontender sternum, ribline. No abnormal pulsations. Auscultation- Breath sounds coarse/ diminished throughout all lung torres. Much better aeration that admit, improved over yesterday as well. He is talkative, full sentences. Scattered wheezes. He is likely close to baseline with his smoking history. Tracheal sounds, bronchial sounds overlying sternum, Bronchovessicular sounds between scapulae posteriorly, vessicular breath sounds heard throughout periphery remain coarse. similar scattered wheezes/rhonchi. Adventitious sounds- wheezes, rales/crackles throughout, rhonchi present bilaterally. This appears to be opening/breaking up. CARDIOVASCULAR: Auscultation- Regular rate and rhythm. No murmur noted in sitting, supine positions. Extremities- + digital clubbing, NO cyanosis, edema, or increased warmth. Refuses to wear tele. ABDOMEN: Inspection- normal and no visible pulsations. Normal contour. Auscultation- Bowel sounds normal, no abdominal bruits. Palpation/Percussion- soft, non-tender, no rebound tenderness, no rigidity (guarding), no jar tenderness, no masses. Peripheral Vascular: Upper extremity Left- Normal temperature with pink nailbeds and no ulcerations. Upper extremity Right- Normal temperature with pink nailbeds and no ulcerations. Lower extremity- Normal temperature with pink nailbeds and no ulcerations. DP pulses 1+ bilaterally. Pedal hair reduced. Normal capillary refill. Foot health is poor, needs podiatry/nails/ callus/feet. Musculoskeletal: Generalized-No generalized swelling or edema of extremities, + digital clubbing w/o cyanosis. neurovascularly intact all four extremities. Spine/Ribs- Scar lumbar spine. tenderness paraspipnal thoracic and lumbar. Neurological: General- Moves all 4 extremities symmetrically. Symmetrical face and body posture. Cranial nerves- individually evaluated II-XII and intact. PERRLA, Normal EOMI, visual/special senses appear intact, Face is symmetrical and normal sensation/movement, normal tongue, normal strength/posture of neck musculature. Neuropsych: Oriented- Person, place, time. (AAOx3), Mood/affect- Down, I think he is depressed. Not interested in NH, not interested in talking with anyone about this. He became Grumpy/irritable again this am when I mentioned anything he did not want to do. Adamant no NH. He does not want to wear O2 on his nose, he keeps putting this in his mouth and sucking it in. Still using a lot of metaphors. He wants more energy. This may be factor of prolonged illness. Speech-Normal speech, normal rate, normal tone, normal use of language, volume and coherence. Thought content- normal with ability to perform basic computations and apply abstract thought/reason. Associations- No SI/HI, I WOULD RATHER TAKE A BULLET THAN GO TO NH. He did not want to , no SI/HI. Judgment/insight- INappropriate. Memory-Recall intact, remote and recent memory intact. Knowledge- Age appropriate fund of knowledge, concentration and attention span normal. Lymphatic: Head/Neck- normal size and non tender to palpation. Laboratory Last Values WBC 20.14 K/ul (4.2-10.2) H 12/09/18 04:43 RBC 6.03 10^6/ul (4.70-6.10) 12/09/18 04:43 Hgb 17.8 g/dl (14.0-18.0) 12/09/18 04:43 Hct 53.3 % (42.0-52.0) H 12/09/18 04:43 MCV 88.4 fl (80.0-94.0) 12/09/18 04:43 MCH 29.5 pg (27.0-31.0) 12/09/18 04:43 MCHC 33.4 (31.8-35.4) 12/09/18 04:43 RDW Coeff of Tere 14.9 % (11.6-14.8) H 12/09/18 04:43 Plt Count 336 10^3/uL (140-440) 12/09/18 04:43 Immature Gran % (Auto) Product Sales Engineer 12/09/18 04:43 Neut % (Auto) Product Sales Engineer 12/09/18 04:43 Lymph % (Auto) Product Sales Engineer 12/09/18 04:43 Addison % (Auto) Product Sales Engineer 12/09/18 04:43 Eos % (Auto) Product Sales Engineer 12/09/18 04:43 Baso % (Auto) Product Sales Engineer 12/09/18 04:43 Immature Gran # (Auto) Product Sales Engineer 12/09/18 04:43 Neut # (Auto) Product Sales Engineer 12/09/18 04:43 Lymph # (Auto) Product Sales Engineer 12/09/18 04:43 Addison # (Auto) Product Sales Engineer 12/09/18 04:43 Eos # (Auto) Product Sales Engineer 12/09/18 04:43 Baso # (Auto) Product Sales Engineer 12/09/18 04:43 Neutrophils % (Manual) 70.0 % (42.2-75.2) 12/09/18 04:43 Lymphocytes % (Manual) 23.0 % (10.0-50.0) 12/09/18 04:43 Monocytes % (Manual) 5.0 % (0.0-10.0) 12/09/18 04:43 Metamyelocytes % 2.0 % (0.0-2.0) 12/09/18 04:43 Anisocytosis Not present (NOT PRESENT) 12/09/18 04:43 Puncture Site Rb 12/08/18 00:10 O2 Saturation 91.0 % (95-100) L 12/08/18 00:10 ABG pH 7.370 (7.35-7.45) 12/08/18 00:10 ABG pCO2 38.4 mmHg (35-45) 12/08/18 00:10 ABG pO2 63.0 mmHg (85-100) L 12/08/18 00:10 ABG HCO3 22.2 (22.0-26.0) 12/08/18 00:10 ABG Total CO2 23 (22.0-28.0) 12/08/18 00:10 ABG Base Excess -3 (-2.0-2.0) L 12/08/18 00:10 Zachary Test + 12/08/18 00:10 FiO2 % 21.0 % 12/08/18 00:10 Sodium 134.4 mmol/L (134.5-145) L 12/09/18 04:43 Potassium 4.28 mmol/L (3.5-5.1) 12/09/18 04:43 Chloride 99.4 mmol/L (98-107) 12/09/18 04:43 Carbon Dioxide 21.9 mmol/L (22-30.0) L 12/09/18 04:43 Anion Gap 17.38 12/09/18 04:43 BUN 27.7 mg/dL (9-20) H 12/09/18 04:43 Creatinine 0.59 mg/dL (0.60-1.10) L 12/09/18 04:43 Estimated GFR (MDRD) 139.00 mL/min 12/09/18 04:43 BUN/Creatinine Ratio 46.94 12/09/18 04:43 Glucose 217.3 mg/dL (74-106) H 12/09/18 04:43 Hemoglobin A1c 8.35 (4.0-6.0) H 12/08/18 00:20 Lactic Acid 1.61 mmol/L (0.7-2.1) 12/08/18 00:45 Calcium 9.74 mg/dL (8.4-10.2) 12/09/18 04:43 Total Bilirubin 1.06 mg/dL (0.2-1.3) 12/08/18 00:20 AST 29.3 U/L (17-59) 12/08/18 00:20 ALT 36.1 U/L (0-50) 12/08/18 00:20 Alkaline Phosphatase 88.8 U/L (56-119) 12/08/18 00:20 Total Creatine Kinase 89.6 U/L (55-170) 12/08/18 13:20 CK-MB (CK-2) 6.450 ng/ml (0.0-2.38) H* 12/08/18 00:20 CK-MB (CK-2) % 4.2400 12/08/18 00:20 Troponin I < 0.012 ng/ml (0.0000-0.120) 12/08/18 13:20 Total Protein 7.75 g/dL (6.3-8.2) 12/08/18 00:20 Albumin 3.89 g/dL (3.5-5.0) 12/08/18 00:20 Globulin 3.86 12/08/18 00:20 Albumin/Globulin Ratio 1.00 12/08/18 00:20 Procalcitonin 0.17 ng/mL (<0.05) 12/08/18 00:20 Urine Opiates Screen Positive (NEGATIVE) 12/09/18 11:25 Ur Oxycodone Screen Negative (NEGATIVE) 12/09/18 11:25 Urine Methadone Screen Negative (NEGATIVE) 12/09/18 11:25 Ur Propoxyphene Screen Negative (NEGATIVE) 12/09/18 11:25 Ur Barbiturates Screen Negative (NEGATIVE) 12/09/18 11:25 U Tricyclic Antidepress Negative (NEGATIVE) 12/09/18 11:25 Ur Phencyclidine Scrn Negative (NEGATIVE) 12/09/18 11:25 Ur Amphetamine Screen Negative (NEGATIVE) 12/09/18 11:25 U Methamphetamines Scrn Negative (NEGATIVE) 12/09/18 11:25 U Benzodiazepines Scrn Negative (NEGATIVE) 12/09/18 11:25 Urine Cocaine Screen Negative (NEGATIVE) 12/09/18 11:25 U Cannabinoids Screen Negative (NEGATIVE) 12/09/18 11:25 Influ A Molecular Assay Negative by naat (NEGATIVE) 12/08/18 01:01 Influ B Molecular Assay Negative by naat (NEGATIVE) 12/08/18 01:01 Miscellaneous Test Sent to [facility] 12/08/18 08:03 (1) COPD exacerbation Status: Acute Code(s): J44.1 - CHRONIC OBSTRUCTIVE PULMONARY DISEASE W (ACUTE ) EXACERBATION SNOMED Code(s): 730018273 (2) SIRS (systemic inflammatory response syndrome) Status: Resolved Code(s): R65.10 - SIRS OF NON-INFECTIOUS ORIGIN W/O ACUTE ORGAN DYSFUNCTION SNOMED Code(s): 986121658 (3) Pneumonitis Status: Acute Code(s): J18.9 - PNEUMONIA, UNSPECIFIED ORGANISM SNOMED Code(s ): 344138234 (4) Insulin dependent diabetes mellitus Status: Chronic Code(s): E11.9 - TYPE 2 DIABETES MELLITUS WITHOUT COMPLICATIONS; Z79.4 - MCC (CURRENT) USE OF INSULIN SNOMED Code(s): 80447338 (5) Elevated CK-MB level Status: Resolved Code(s): R74.8 - ABNORMAL LEVELS OF OTHER SERUM ENZYMES SNOMED Code(s): 982121630 (6) Leukocytosis Status: Acute Code(s): D72.829 - ELEVATED WHITE BLOOD CELL COUNT, UNSPECIFIED SNOMED Code(s): 917689022 (7) Elevated blood pressure reading Status: Acute Code(s): R03.0 - ELEVATED BLOOD-PRESSURE READING, W/O DIAGNOSIS OF HTN SNOMED Code(s): 62151902 (8) Chronic back pain Status: Chronic Code(s): M54.9 - DORSALGIA, UNSPECIFIED SNOMED Code(s): 176157918 (9) Chronic anticoagulation Status: Chronic Code(s): Z79.01 - MCC (CURRENT) USE OF ANTICOAGULANTS SNOMED Code(s): 260971361 (10) Intermittent atrial fibrillation Status: Chronic Code(s): I48.0 - PAROXYSMAL ATRIAL FIBRILLATION SNOMED Code( s): 968090575 (11) Mixed hyperlipidemia Status: Chronic Code(s): E78.2 - MIXED HYPERLIPIDEMIA SNOMED Code(s): 279556738 (12) Smokes 2 packs of cigarettes per day Status: Chronic Code(s): F17.210 - NICOTINE DEPENDENCE, CIGARETTES, UNCOMPLICATED SNOMED Code(s): 562339155 (13) GERD (gastroesophageal reflux disease) Status: Chronic Code(s): K21.9 - GASTRO-ESOPHAGEAL REFLUX DISEASE WITHOUT ESOPHAGITIS SNOMED Code(s): 866520505 Plan: COPD exacerbation (Acute)/ Pneumonitis (Acute)/SIRS (systemic inflammatory response syndrome): Patient remains marginally compliant with oxygen, putting it into his mouth. He was very angry when I brought up [facility]. Angry that I tried to discuss with him what this meant and why it would help him. Was not interested in home health, I offered phys therapy he was not interested in that but then agreed. He was not interested in considering pulm rehab then we said it may be outpatient but we would need PFT and he would think about this. He continues to declined telemetry, I again discussed these sensors are there to help us monitor for problems/complications. He still is not intereste din nicoderm patch, as he does not want to change one poison for another. Very difficult vascular access. I do not know yet about the CBC/CMP from today as they are pending at time of rounding. Samples were hemolyzed yesterday ran x 3 and WBC anywhere from 20-25. O2 has remained >90. He remains afebrile and he is much more talkative today. He feels better today but not yet ready for d/c home. - Continue Admission inpatient status - 3 step oxygen to be completed today to eval for need for home O2. - phys therapy eval today - Albuterol Q4H PRN, Ipratropium mixed in QID> - Rocephin 1 Gram daily IV (day 3/5) - Doxy 100 PO BID (Day 3/5): reviewed to take with full glass of water. - Prednisone: 40mg q day x 5 days. ( Day 3/5) -Tobacco avoidance discussed specifically, declined nicoderm again today - Reviewed LAMA, LABA, GC, TOMAS agents. - Tele declined by patient, this has not been d/c, nor will it. Patient has chosen not to wear the service we are offering. - I+O q shift - Vitals Q shift. - sputum culture - Blood culture (negative so far) - Urine ag testing. (pending) Chronic anticoagulation (Acute): Continue to use pradaxa, no s/sx of bleeding. In rhythm at present to auscultation. - Tele offered, declined by patient. Elevated blood pressure reading (Acute): On Marlon-I lisinopril 2.5mg daily, increased to 5mg yesterday. BP is up. ?Dehydration. His weakness may be that as well. I+O data is not helpful today. I will let fluids run at 100/hour today and see how he feels overnight. Continue Cardizem ER 180mg bedtime, atenolol 25 mg daily. - Monitor. - If BP remains elevated may increase lisinopril to 10 mg daily. Intermittent atrial fibrillation (Acute): In rhythm at present, chronic anticoag , rate control with diltiazem ER daily. Telemetry is now not on board as patient refuses to wear this. Discussed again today the R/B/A to being able to monitor for dangerous heart rhythms. We will continue to monitor. - Continue to monitor - Tele offered and declined by patient. - Continue home meds. Leukocytosis (Acute): Repeat CBC in am 12/11/18. Await CBC 12/10/18. Poor vascular access. He may actually be a candidate for a port placement in future. Chronic back pain (Chronic): Resume home norco. Tylenol limit 2G per day. Insulin dependent diabetes mellitus (Chronic): A1C above recommended goal. He is getting sliding scale insulin with meals. Allowing this and tolerating it well. - accucheck w/ correctional insulin. GERD: continue prilosec. Mixed hyperlipidemia (Chronic): Continue pravastatin, hold the vascepa. DVT Prophy: Continue home pradaxa Heavy Tobacco User: Remains uninterested in nicotine patches. Offered/declined again today. Diet: ADA Diabetic 1800 kcal Activity: Up with assist Code Status: DNR POA: Unknown Living Will: Unknown Dispo: Lengthy discussion today about o2, using this as recommended and to consider tele. he does not want tele. He does not want NH, does not want home health he thinks. Son lives near him and will help with what he needs "not bathing me or anything like that." We talked about pulm rehab. WE talked about options. He thinks tomorrow would be a good option for him. NO family present today. Reviewed overnight Nursing notes. Talked to him this am about disposition plan of d/c home tomorrow. 3step to be done today, likely home O2. He has neb machine no albuterol. Discussed we can make that happen. 15:00 addendum Labs returned. WBC 23 and PLT 500 and HGb 16.8 ? hemoconcentration. I added NS 100ml/hour for gentle hydration. BP was elevated 160 SBP this afternoon. I called back to floor at 17:00 and talked with nurse. She checked it manually and it was 144/77. I will leave the lisinopril alone. Labs as listed below. Creatinine is stable. Glucose is reasonable. Calcium is fine. Sodium corrects to normal. Reactive lymphocytes. He has not reported cat scratch. Flu was negative, liver enzymes are fine supporting no hepatitis. Stress can do this, steroidal effect likely as neutrophils still predominate. He is improving despite large WBC, no diarrhea, no e/o c. diff, no abdominal pain, no N/V/D. Laboratory Results - last 24 hr 12/10/18 12/10/18 08:25 08:25 WBC 23.38 H RBC 5.70 Hgb 16.8 Hct 49.7 MCV 87.2 MCH 29.5 MCHC 33.8 RDW Coeff of Tere 14.4 Plt Count 506 H D Neutrophils % (Manual) 72.0 Lymphocytes % (Manual) 3.0 L Monocytes % (Manual) 2.0 Reactive Lymphocytes 23.0 H Anisocytosis Not present Sodium 134.4 L Potassium 4.37 Chloride 99.5 Carbon Dioxide 27.2 Anion Gap 12.07 BUN 27.6 H Creatinine 0.51 L Estimated GFR (MDRD) 164.00 BUN/Creatinine Ratio 54.11 Glucose 177.3 H Calcium 9.20 Total Bilirubin 0.71 AST 42.4 ALT 43.8 Alkaline Phosphatase 89.9 Total Protein 7.21 Albumin 3.60 Globulin 3.61 Albumin/Globulin Ratio 0.99 Checked on patient again at 17:30 and he was sitting in bedside, food consumed. I asked how his meal was "Edible" is what he noted. He is not using oxygen, he noted it was in the bed. he has been non compliant with oxygen, refuses telemetry leads, pulse ox. I discussed plan to consider home tomorrow. "NO I still don't have my breath." I will do a home health consult at discharge. They may only be able to come in a few days at a time. He is refusing oxygen and the above interventions, I cannot warrant keeping him in hospital. BP has been running higher than typical. He is on pradaxa, no s/sx of bleeding. I will increase lisinopril to 5 mg from 2.5mg. I will order a three step-oxygen in am. I will consider eval by phys therapy in hospital. He did not want this today.
[2018-12-10] MEDS: SYMBICORT 160-4.5 MCG INHALER IH SCH ×2 (08:45→20:43)
[2018-12-10] MEDS: ASPIRIN EC PO SCH (08:46)
[2018-12-10] MEDS: DOXYCYCLINE HYCLATE PO SCH ×2 (08:46→20:49)
[2018-12-10] MEDS: GLUCOPHAGE PO SCH ×2 (08:46→16:53)
[2018-12-10] MEDS: NEURONTIN PO SCH ×6 (08:47→20:49)
[2018-12-10] MEDS: NORCO 10-325 PO SCH ×3 (08:48→20:49)
[2018-12-10] MEDS: PRAVACHOL PO SCH (08:48)
[2018-12-10] MEDS: PREDNISONE PO SCH (08:48)
[2018-12-10] MEDS: PRADAXA PO SCH ×2 (08:49→20:51)
[2018-12-10] MEDS: TENORMIN PO SCH (08:49)
[2018-12-10] MEDS: LEVEMIR SUBCUT SCH ×2 (08:51→20:54)
[2018-12-10] MEDS ORDERED: ZESTRIL PO SCH (09:00)
[2018-12-10] MEDS: SODIUM CHLORIDE 500 ML IV SCH ×3 (11:48→22:24)
--- NOTE | 2018-12-10 13:34 | RS.PTINEVL ---
Subjective - Patient information Date of Evaluation: 12/10/18 Date of Arrival on Unit: 12/08/18 Admitted From:: Home Diagnosis: pneumonia, respiratory failure, afib Usual Living Arrangement: Alone Living Arrangement Comments: Lives at home alone Home Environment: House Medical History: Hypertension, Diabetes Medical History Comments:: CAD, GERD, LATEX ALLERGY?: No Surgical History Comments:: cardiac stent x 2, back surgery Medications: see chart Subjective Information/ Patient Comments:: pt states that he is going to do whatever he "damn well pleases". pt voices complaints regarding MD. - Level of function Prior to this admission, the patient could do the following:: Independent Selfcare, Independent ADL's, Independent Ambulation, Drive Current Level of Function: Partially Dependent Current Equipment Used at Home: None Interventions - Objective Patient Orientation: Person, Place, Time Current Interventions: Oxygen Observation: pt refuses telemetry and when arrived in room had O2 resting on his forehead, pt then put the cannula in his mouth. Range of Motion - ROM Right Upper Extremity AROM: WFL's Left Upper Extremity AROM: WFL's Right Lower Extremity AROM: WFL's Left Lower Extremity AROM: WFL's Muscle Strength - Muscle Strength Comments:: grossly 4+/5 throughout, pt not cooperative with MMT Sensation - Sensation Right Upper Extremity Sensation: Intact/Normal Left Upper Extremity Sensation: Intact/Normal Right Lower Extremity Sensation: Intact/Normal Left Lower Extremity Sensation: Intact/Normal Palpation Palpation Findings: None/Normal Balance - Sitting Balance and Reactions Static Sitting Balance: Good Dynamic Sitting Balance: Good - Standing Balance and Reactions Static Standing Balance: Fair Dynamic Standing Balance: Poor Standing Equilibrium Reactions: Delayed Left, Delayed Right Standing Protective Reactions: Delayed Left, Delayed Right Functional Mobility - Bed Mobility Comments:: pt seen sitting at side of bed. 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 ) Assistance needed with Ambulation: Min Assist, 2 person assist Gait Deviations: Forward posture, Short stride, Deviates from path Ambulation Comments: pt with increased lat sway and multiple LOB to side requiring min assist to maintain balance. Treatment time - Time with patient Length of Evaluation: 26 Total treatment time: 26 Patient Education - Education Patient Education: Home Exercise Program, Education of Plan of Care Teaching Recipient: Patient Teaching Methods: Discussion Comments: discussion regarding POC as well as safety Assessment - Assessment Problem List:: Decreased level of function, Requires training/education, Decreased safety/Risk of falls, Weakness Rehab Potential: Fair Further Therapy Indicated?: Yes Candidate for Swing Bed for Therapy Services?: Feel pt is not a candidate for swing bed for therapy at this time due to higher functional level. Evaluation Complexity: HISTORY: Medium (HTN, DM, pneumonia, CAD), EXAM OF BODY SYSTEMS: Medium (decreased strength, balance, gait, transfers, ), CLINICAL PRESENTATION: Medium, CLINICAL DECISION MAKING: Medium Short Term Goals GOAL #1: pt demonstrate independence with rolling and scooting up in bed Goal to be met by: 12/12/18 GOAL #2: Transfers sup to/from sit SBA Goal to be met by: 12/12/18 GOAL #3: Sit to/from stand CGA Goal to be met by: 12/12/18 GOAL #4: pt amb with AAD with CGA with no LOB 100ft Goal to be met by: 12/12/18 [facility] Goals GOAL #1: Transfers sup to/from sit independently Goal to be met by: 12/14/18 GOAL #2: Sit to/from stand SBA Goal to be met by: 12/14/18 GOAL #3: pt amb with/without AD SBA functional household distances. Goal to be met by: 12/14/18 Plan Plan of Care: Therapeutic EX, Therapeutic Activity Other:: gait training Frequency of Treatment: 1-2 X day, as tolerated Duration of Treatment: 5 days Anticipated Discharge Destination: Home Treatment Diagnosis (ICD 10 Codes): R26.2 difficulty walking. R26.81 balance impaired. M62.81 weakness Has the Physician been added for Co-signature?: Yes
[2018-12-10] MEDS: HUMULIN R SUBCUT PRN ×2 (17:25→20:55)
[2018-12-10] MEDS: TRIGLIDE PO SCH (20:49)
[2018-12-10] MEDS: ZESTRIL PO SCH (20:50)
[2018-12-10] MEDS: CARDIZEM CD PO SCH (20:50)
[2018-12-10] MEDS: ROCEPHIN 1 GM in SODIUM CHLORIDE 50 ML IV SCH (20:58)
[2018-12-11] MEDS: ATROVENT 0.02% NEB NEB SCH ×2 (04:55→10:10)
[2018-12-11] MEDS: ALBUTEROL 0.083% NEB NEB SCH ×2 (04:55→10:11)
[2018-12-11] MEDS: PRILOSEC PO SCH (05:40)
[2018-12-11 05:54] VITALS: TEMP 98.1
[2018-12-11 06:43] VITALS: BP 158/88
[2018-12-11] MEDS: ASPIRIN EC PO SCH (08:27)
[2018-12-11] MEDS: NEURONTIN PO SCH ×2 (08:27→08:29)
[2018-12-11] MEDS: PREDNISONE PO SCH (08:28)
[2018-12-11] MEDS: PRAVACHOL PO SCH (08:28)
[2018-12-11] MEDS: GLUCOPHAGE PO SCH (08:29)
[2018-12-11] MEDS: NORCO 10-325 PO SCH (08:29)
[2018-12-11] MEDS: PRADAXA PO SCH (08:30)
[2018-12-11] MEDS: TENORMIN PO SCH (08:30)
[2018-12-11] MEDS: LEVEMIR SUBCUT SCH (08:33)
[2018-12-11] MEDS: SYMBICORT 160-4.5 MCG INHALER IH SCH (08:37)
[2018-12-11] MEDS ORDERED: ROCEPHIN 1 GM in SODIUM CHLORIDE 50 ML IV SCH (10:30)
--- NOTE | 2018-12-12 00:04 | PCM.DC ---
Final Diagnosis: COPD exacerbation (Acute): Albuterol q 4 hours, ipratropium QID, prednisone 40mg daily. Abx rocephin 1gram daily x 4 days, doxycycline BID throughout stay. Elevated blood pressure reading (Acute): Lisinopril increased from 2.5 mg to 5mg and discharged home on 10mg daily. Hypoxia (Acute): Better on O2. He was discharged on home oxygen as 3 step testing <88% on Room Air. Leukocytosis (Acute): Suspect demargination/steroidal effect. Repeat CBC in 1 week. Pneumonitis (Acute): Steroids, nebs as listed and abx to cover for chance that pneumonia was present. Respiratory failure (Acute): Improved throughout hospital stay. Chronic anticoagulation (Chronic): Continued pradaxa throughout stay. Chronic back pain (Chronic): Continued home norco throughout stay. GERD (gastroesophageal reflux disease) (Chronic): Continue PPI throughout stay. Insulin dependent diabetes mellitus (Chronic): Continued levemir home dose, added SSI to his regimen, victoza held. Intermittent atrial fibrillation (Chronic): In rhythm, refused pulse ox and telemetry multiple times throughout hospital stay. Mixed hyperlipidemia (Chronic) Smokes 2 packs of cigarettes per day (Chronic): No TOBACCO in hospital. Refused nicoderm "Did not want to substitute one poison for another BMI 35: Unchanged/chronic. Weight loss encouraged. (1) COPD exacerbation Status: Acute Code(s): J44.1 - CHRONIC OBSTRUCTIVE PULMONARY DISEASE W (ACUTE ) EXACERBATION SNOMED Code(s): 962481691 (2) SIRS (systemic inflammatory response syndrome) Status: Resolved Code(s): R65.10 - SIRS OF NON-INFECTIOUS ORIGIN W/O ACUTE ORGAN DYSFUNCTION SNOMED Code(s): 491732271 (3) Pneumonitis Status: Acute Code(s): J18.9 - PNEUMONIA, UNSPECIFIED ORGANISM SNOMED Code(s ): 891052032 (4) Insulin dependent diabetes mellitus Status: Chronic Code(s): E11.9 - TYPE 2 DIABETES MELLITUS WITHOUT COMPLICATIONS; Z79.4 - [employer] (CURRENT) USE OF INSULIN SNOMED Code(s): 55029238 (5) Elevated CK-MB level Status: Resolved Code(s): R74.8 - ABNORMAL LEVELS OF OTHER SERUM ENZYMES SNOMED Code(s): 122269179 (6) Leukocytosis Status: Acute Code(s): D72.829 - ELEVATED WHITE BLOOD CELL COUNT, UNSPECIFIED SNOMED Code(s): 851927578, 871999540 (7) Elevated blood pressure reading Status: Acute Code(s): R03.0 - ELEVATED BLOOD-PRESSURE READING, W/O DIAGNOSIS OF HTN SNOMED Code(s): 23744527 (8) Chronic back pain Status: Chronic Code(s): M54.9 - DORSALGIA, UNSPECIFIED SNOMED Code(s): 364396894 Qualifiers: Back pain location: low back pain Back pain laterality: bilateral Sciatica presence: with sciatica (9) Chronic anticoagulation Status: Chronic Code(s): Z79.01 - [employer] (CURRENT) USE OF ANTICOAGULANTS SNOMED Code(s): 251033546 (10) Intermittent atrial fibrillation Status: Chronic Code(s): I48.0 - PAROXYSMAL ATRIAL FIBRILLATION SNOMED Code( s): 889650165 (11) Mixed hyperlipidemia Status: Chronic Code(s): E78.2 - MIXED HYPERLIPIDEMIA SNOMED Code(s): 782376288 (12) Smokes 2 packs of cigarettes per day Status: Chronic Code(s): F17.210 - NICOTINE DEPENDENCE, CIGARETTES, UNCOMPLICATED SNOMED Code(s): 234308574 (13) GERD (gastroesophageal reflux disease) Status: Chronic Code(s): K21.9 - GASTRO-ESOPHAGEAL REFLUX DISEASE WITHOUT ESOPHAGITIS SNOMED Code(s): 206381324 Reason for Hospitalization: COPD Exacerbation, Leukocytosis, Pneumonitis, SIRS, Hypoxic respiratory failure. Prognosis at Discharge: Good. He had improved throughout hospital stay. Angry/irritable mood, non compliant with tele. He was on pradaxa entire stay for DVT prophy. He received nebs, abx, steroids and was on O2. Non compliant with O2, non compliant with telemetry. Overall he was stable, adamant no NH, no assisted living. Considered pulm rehab. Breathing better, more upbeat and more energy at discharge. Leukocytosis and elevated blood pressure at discharge will require further evaluation by PCP. Personally called and talked with PCP> Condition at Discharge: Stable to improved. Medications at Discharge: Ambulatory Orders Medication Instructions Recorded Aspirin [Aspirin EC] 81 mg PO DAILYWM 05/15/15 Atenolol 25 mg PO DAILY 05/15/15 Budesonide/Formoterol Fumarate 2 puff INH BID 05/15/15 [Symbicort 160-4.5 Mcg Inhaler] Dabigatran Etexilate Mesylate 150 mg PO BID 05/15/15 [Pradaxa] Fenofibrate Nanocrystallized 145 mg PO BEDTIME 05/15/15 [Fenofibrate] Hydrocodone/Acetaminophen 10 - 325 mg PO TID 05/15/15 [Hydrocodone-Acetamin 10-325 mg] Metformin HCl [Metformin HCl ER] 1,000 mg PO BID 05/15/15 Omeprazole [Prilosec] 20 mg PO QDAC 05/15/15 Pravastatin Sodium [Pravachol] 20 mg PO DAILY 05/15/15 Tadalafil [Cialis] 5 mg PO QID PRN 05/15/15 Albuterol Sulfate [Ventolin Hfa] 2 inh IH QID 12/08/18 Diltiazem HCl [Diltiazem ER] 180 mg PO BEDTIME 12/08/18 Gabapentin 400 mg PO TID 12/08/18 Icosapent Ethyl [Vascepa] 2 gm PO BID 12/08/18 Insulin Detemir [Levemir] 45 unit SUBCUT BID 12/08/18 Liraglutide [Victoza 2-Kike] 1.8 mg SQ DAILY 12/08/18 Umeclidinium Conrad [Incruse 1 inh IH DAILY 12/08/18 Ellipta] Albuterol Sulfate 0.083% Neb 1 vial NEB RTQ4H 5 Days #30 12/11/18 [Albuterol 0.083% Neb] vial.neb Ceftriaxone Sodium [Rocephin] 1 gm IJ ONCE 1 Days #1 vial 12/11/18 Doxycycline Hyclate 100 mg PO Q12HR 1 Days #3 capsule 12/11/18 Lisinopril 10 mg PO DAILY 30 Days #30 tablet 12/11/18 Prednisone 40 mg PO DAILYWM 1 Days #2 tablet 12/11/18 Lab/Diagnostics: Laboratory Last Values WBC 19.01 K/ul (4.2-10.2) H 12/11/18 07:30 RBC 5.67 10^6/ul (4.70-6.10) 12/11/18 07:30 Hgb 16.5 g/dl (14.0-18.0) 12/11/18 07:30 Hct 49.5 % (42.0-52.0) 12/11/18 07:30 MCV 87.3 fl (80.0-94.0) 12/11/18 07:30 MCH 29.1 pg (27.0-31.0) 12/11/18 07:30 MCHC 33.3 (31.8-35.4) 12/11/18 07:30 RDW Coeff of Tere 14.4 % (11.6-14.8) 12/11/18 07:30 Plt Count 483 10^3/uL (140-440) H 12/11/18 07:30 Immature Gran % (Auto) Automobile Parker 12/09/18 04:43 Neut % (Auto) Automobile Parker 12/09/18 04:43 Lymph % (Auto) Automobile Parker 12/09/18 04:43 [place] % (Auto) Automobile Parker 12/09/18 04:43 Eos % (Auto) Automobile Parker 12/09/18 04:43 Baso % (Auto) Automobile Parker 12/09/18 04:43 Immature Gran # (Auto) Automobile Parker 12/09/18 04:43 Neut # (Auto) Automobile Parker 12/09/18 04:43 Lymph # (Auto) Automobile Parker 12/09/18 04:43 [place] # (Auto) Automobile Parker 12/09/18 04:43 Eos # (Auto) Automobile Parker 12/09/18 04:43 Baso # (Auto) Automobile Parker 12/09/18 04:43 Neutrophils % (Manual) 47.0 % (42.2-75.2) 12/11/18 07:30 Lymphocytes % (Manual) 28.0 % (10.0-50.0) 12/11/18 07:30 Monocytes % (Manual) 2.0 % (0.0-10.0) 12/11/18 07:30 Eosinophils % (Manual) 3.0 % (0.0-5.0) 12/11/18 07:30 Metamyelocytes % 5.0 % (0.0-2.0) H 12/11/18 07:30 Myelocytes % 3.0 % (0.0-1.0) H 12/11/18 07:30 Reactive Lymphocytes 12.0 % (0.0-5.0) H 12/11/18 07:30 Anisocytosis Not present (NOT PRESENT) 12/11/18 07:30 Puncture Site Rb 12/08/18 00:10 O2 Saturation 91.0 % (95-100) L 12/08/18 00:10 ABG pH 7.370 (7.35-7.45) 12/08/18 00:10 ABG pCO2 38.4 mmHg (35-45) 12/08/18 00:10 ABG pO2 63.0 mmHg (85-100) L 12/08/18 00:10 ABG HCO3 22.2 (22.0-26.0) 12/08/18 00:10 ABG Total CO2 23 (22.0-28.0) 12/08/18 00:10 ABG Base Excess -3 (-2.0-2.0) L 12/08/18 00:10 Zachary Test + 12/08/18 00:10 FiO2 % 21.0 % 12/08/18 00:10 Sodium 133.7 mmol/L (134.5-145) L 12/11/18 07:30 Potassium 4.31 mmol/L (3.5-5.1) 12/11/18 07:30 Chloride 99.0 mmol/L (98-107) 12/11/18 07:30 Carbon Dioxide 27.7 mmol/L (22-30.0) 12/11/18 07:30 Anion Gap 11.31 12/11/18 07:30 BUN 18.5 mg/dL (9-20) 12/11/18 07:30 Creatinine 0.51 mg/dL (0.60-1.10) L 12/11/18 07:30 Estimated GFR (MDRD) 164.00 mL/min 12/11/18 07:30 BUN/Creatinine Ratio 36.27 12/11/18 07:30 Glucose 152.1 mg/dL (74-106) H 12/11/18 07:30 Hemoglobin A1c 8.35 (4.0-6.0) H 12/08/18 00:20 Lactic Acid 1.61 mmol/L (0.7-2.1) 12/08/18 00:45 Calcium 9.13 mg/dL (8.4-10.2) 12/11/18 07:30 Total Bilirubin 0.61 mg/dL (0.2-1.3) 12/11/18 07:30 AST 38.0 U/L (17-59) 12/11/18 07:30 ALT 60.6 U/L (0-50) H 12/11/18 07:30 Alkaline Phosphatase 81.1 U/L (56-119) 12/11/18 07:30 Total Creatine Kinase 89.6 U/L (55-170) 12/08/18 13:20 CK-MB (CK-2) 6.450 ng/ml (0.0-2.38) H* 12/08/18 00:20 CK-MB (CK-2) % 4.2400 12/08/18 00:20 Troponin I < 0.012 ng/ml (0.0000-0.120) 12/08/18 13:20 Total Protein 6.57 g/dL (6.3-8.2) 12/11/18 07:30 Albumin 3.78 g/dL (3.5-5.0) 12/11/18 07:30 Globulin 2.79 12/11/18 07:30 Albumin/Globulin Ratio 1.35 12/11/18 07:30 Procalcitonin 0.17 ng/mL (<0.05) 12/08/18 00:20 Urine Opiates Screen Positive (NEGATIVE) 12/09/18 11:25 Ur Oxycodone Screen Negative (NEGATIVE) 12/09/18 11:25 Urine Methadone Screen Negative (NEGATIVE) 12/09/18 11:25 Ur Propoxyphene Screen Negative (NEGATIVE) 12/09/18 11:25 Ur Barbiturates Screen Negative (NEGATIVE) 12/09/18 11:25 U Tricyclic Antidepress Negative (NEGATIVE) 12/09/18 11:25 Ur Phencyclidine Scrn Negative (NEGATIVE) 12/09/18 11:25 Ur Amphetamine Screen Negative (NEGATIVE) 12/09/18 11:25 U Methamphetamines Scrn Negative (NEGATIVE) 12/09/18 11:25 U Benzodiazepines Scrn Negative (NEGATIVE) 12/09/18 11:25 Urine Cocaine Screen Negative (NEGATIVE) 12/09/18 11:25 U Cannabinoids Screen Negative (NEGATIVE) 12/09/18 11:25 Influ A Molecular Assay Negative by naat (NEGATIVE) 12/08/18 01:01 Influ B Molecular Assay Negative by naat (NEGATIVE) 12/08/18 01:01 Urine Legionella Ag Negative (Negative) 12/08/18 17:40 Miscellaneous Test Sent to [facility] 12/08/18 08:03 WBC Trends 12/08/18 12/09/18 12/10/18 Range/Units 00:20 04:43 08:25 WBC 16.00 H 20.14 H 23.38 H (4.2-10.2) K/ul 12/11/18 Range/Units 07:30 WBC 19.01 H (4.2-10.2) K/ul Na/K Trends 12/08/18 12/09/18 12/10/18 Range/Units 00:20 04:43 08:25 Sodium 133.1 L 134.4 L 134.4 L (134.5-145) mmol/L Potassium 4.56 4.28 4.37 (3.5-5.1) mmol/L 12/11/18 Range/Units 07:30 Sodium 133.7 L (134.5-145) mmol/L Potassium 4.31 (3.5-5.1) mmol/L H/H Trends 12/08/18 12/09/18 12/10/18 Range/Units 00:20 04:43 08:25 Hgb 16.8 17.8 16.8 (14.0-18.0) g/dl Hct 49.7 53.3 H 49.7 (42.0-52.0) % 12/11/18 Range/Units 07:30 Hgb 16.5 (14.0-18.0) g/dl Hct 49.5 (42.0-52.0) % ABG: primary metabolic acidosis with appropriately compensated respiratory alkalosis CXR: Bilateral reticular nodular opacities favoring pneuomnitis. F/U recommended Education Provided to Patient and Family: 1. COPD 2. Abx Ceftriaxone/Doxy R/B/A 3. Steroid prednisone R/B/A 4. Smoking cessation: Tobacco Cessation discussed today. We reviewed lifestyle choices and discussed quitting. Ready to quit status discussed. The risks and hazards of continued tobacco abuse were discussed with the patient today and total tobacco cessation as recommended. It was clearly and unambiguously explained that continued tobacco usage will adversely affect overall morbidity and mortality of the patient. Patient was informed that tobacco use can lead to numerous cancers, worsening of cardiovascular and pulmonary systems and that lung damage is often permanent and irreversible. I advised the patient to inform me if any further assistance is requested, as we can offer counseling services, nicotine replacement inhaled, patch, lozenge, gum, or prescription medications to include Chantix or Wellbutrin for assistance. I will reassess the interest in tobacco cessation at the next and all subsequent visits. 5. DM: A1C goal <7.0. Annual microalbumin, BP control <140/90, annual eye evaluation. 6. Anticoagulation R/B/A. Concern for bleeding, Pradaxa SE discussed. 7. WEight loss with BMI of 35.5. 8. Oxygen safety especially with tobacco. Avoid tobacco/O2 due to risks of fire/explosion. 9. Return to ER for worsening 10. Pulm rehab discussed w/ patient. 11. NH/Assisted living benefits d/w patient. Follow-ups: 1. DEVIL DOG Diot 12/17/18 9 am. 2. CBC 1 week 3. CXR 1 week 4. Finish abx tomorrow. Disposition: HOME SELF-CARE Hospital Course: 63 yo CM patient of MEMO Burger presented to [facility] on 00:[address] Roberts in the ER w/ c/o SOA, worsening breathing x 2 weeks, suddenly worse prior to arrival. Thick green mucus, chills, weakness. Temp noted 97.3, pulse 86, RR 36, BP 147/72, Pulse ox 87%. WBC noted to be 16, hgb 16.8, plt 376, 10.7% monocytes, 9.5# Neutrophils, 4.3% lymphocytes. Molecular Flu and strep were both negative. Lactic acid 1.61, procalcitonin 0.17 both of which negative. Blood cultures ordered and ultimately negative. CXR completed and Bilateral reticular nodular opacities favoring pneumonitis. CMP showed sodium 133.1, K+ 4.56, co2 21.8, BUN 25., Cr 0.69 GFR 116 and doing well. Glucose 129.7, A1C ordered and returne 8.35. Calcium normal 9.59. Alk phos 88.8 normal, ast and alt normal 29.3 and 36.1. CK-MB was elevated at 6.450 and repeated and ultimately negative. EKG NSR, placed on telemetry. Patient had ABG o2 saturation 91, pH 7.370, Pc02 38.4, P02 63, Hc03 22.2 and co2 23, fio2 21%. Independent interpretation of this ABG suggests primary metabolic acidosis w/ appropriately compensated respiratory alkalosis. Vitals were okay in Er/Floor, normal examination other than pulmonary exam. We gave him duoneb QID, albuterol in between, solumedrol changed to prednisone 40mg and I had him use ceftriaxone 1gram daily and doxycycline 100mg PO BID. Diabetic diet, up with assist and since he was already on pradaxa, it was continued for DVT prophy. We continued his 45 units BID of levemir and added SSI. Strep pneumo ag and legionella Ag ordered. With a P.O.R.T Score 83 points risk class III 0.9-2.8% mortality, he was placed into inpatient status to room 119. Lengthy discussion with patient son Jerome. We discussed outpatient spirometry to be completed ~1 month post discharge. REviewed his ~100 pack year history of smoking. HD#2: Issues overnight w/ compliance. He removed oxygen numerous times, has removed pulse ox, has removed telemetry and has been found SOA and hypoxic multiple times. Discussed need to keep these on. He refused insulin sliding scale, despite elevated sugars due to prednisone. We continued same abx. WBC this am increased from 16 to 20.14, hgb up to 17.8 from 16.8 but plt down to 336 from 370. CMP showed 133.7 sodium with glucose 241.9, which corrects to 135.97. Potassium appeared mildly elevated at 5.19 (repeated and okay), cl 100.2. BUN 28.7 and Cr 0.51 and stable. Calcium stable at 9.27. CK repeat was normal and much lower at 89.6 and troponin #2 remained negative. Very difficult vascular access. BP up this am 184/94 and 182/94 at 0448 they thought that this was incorrect, manually checked it and 136/88 at 5:26. O2 90- 99. Tele has been refused by patient. I talked with son, very angry for this meeting. Patient placed oxygen multiple times into mouth and sucked on the oxygen. Declined nictine replacement, declined tele, declined pulse ox several times. He wanted to go out and smoke, I denied this request. HD#3 Continued abxs , steroids, nebs, SSI and home meds. Patient more angry, irritable and not happy with his strength. He has been non compliant with oxygen, taking it off nose and putting it into his mouth. Refused telemetry, refused to wear pulse ox as well. Issue with lab draw and poor vascular access. The patient has markedly elevated WBC 20.14, hgb 17.8, plt 336. Rerun WBC 25.05, hgb 17.2, plt 560. Sodium 134.4, K+ 4.28, cl 99.4, cr 0.59, glucse 217.3, calcium 9.74 yesterday. Vitals reviewed 158/75, 149/74, 152/85 as last few BP. I increased his lisinopril to 5mg from the 2.5mg he was on. Temp 97.4-98.3. He was on 3L O2. Accuchecks 253/156/214/243/123. Taking levemir 45 BID. He received 3 units of insulin 0611, 1726 and 2125. Case management and I talked with patient at length on HD 3 about disposition. Adamantly opposed to NH. NO recent PFT. He is not currently capable of doing them. 3step O2 evaluation was abnormal suggesting he was <88% on RA with activity. We set up home nebulizer machine medicaitons and home O2. Day of Discharge: 12/11/18 breathing continued to improve. The patient was moving air more, he was non compliant. BP range 144-165/75-88. RR 36 at admit and 16-18 by d/c. HR 72-83, temp remained afebrile 97.5-98.4. Tele refused, O2 non compliant. Home O2 set up Voids x 4 and BM x 1 within 24 hours. Sugars 123/164/217/210/139 Hospital day 3, was given 3 units with the 217 and at 20: 55. Sputum returned negative, BC negative. WBC did drop on day of discharge to 19.01, hgb 16.5, plt 485. Reactive lymphocytes and neutrophilia present. Patient improved throughout stay, was discharged with 1 more day of IM rocephin , doxy 100mg tonight and BID tomorrow. He was d/c with home O2, with meds for nebulizer machine and with increase in lisinopril from 2.5mg to total of 10mg daily. R/B/A to these meds d/w patient. Would benefit from PFT w/ bronchodilator, which we can do in our hospital in then ext 30 days. WOuld benefit likely from pulm rehab as well. Risks of explosions/fire with use of O2 d/w patient. He was very angry/grumpy throughout stay, I tried to talk with him and he did not want to hear what I had to say. Son was very grumpy/angry as well. He did note improvement throughout stay. Non compliant with our sensors. He was angry when I tried to make sure he was aware that he should not smoke and use O2 at same time. Day of Discharge physical examination: Vital Signs (72 hours) 12/09/18 12/09/18 12/10/18 14:00 21:48 05:09 Temperature 98.3 F 98.1 F 97.5 F L Pulse Rate 73 79 83 Respiratory 26 H 20 18 Rate Blood Pressure 158/75 H 149/74 H 152/85 H O2 Sat by Pulse 96 97 94 L Oximetry 12/10/18 12/10/18 12/10/18 13:35 14:00 17:00 Temperature 98.4 F Pulse Rate 72 Respiratory 16 Rate Blood Pressure 160/84 H 144/77 H O2 Sat by Pulse 95 93 L Oximetry 12/10/18 12/10/18 12/10/18 19:00 20:00 22:00 Temperature 98.3 F Pulse Rate 76 Respiratory 18 18 Rate Blood Pressure 144/77 H 165/78 H O2 Sat by Pulse 96 Oximetry 12/11/18 12/11/18 12/11/18 05:53 06:35 06:42 Temperature 98.1 F Pulse Rate 75 Respiratory 17 Rate Blood Pressure 162/84 H 165/75 H 158/88 H O2 Sat by Pulse 95 Oximetry 12/11/18 10:00 Temperature Pulse Rate Respiratory Rate Blood Pressure O2 Sat by Pulse 95 Oximetry Constitutional: Appearance-No acute distress, angry. Very grumpy. Right decubitus, refused to open eyes. No accessory muscle use, Orientation- Oriented x 3, alert Build and Nutrition-[obese male] Integumentary: Bilateral feet with prominent callus, some claw toes, hypertrophic nails. No edema. ENMT: Nares- bilateral quiet airflow, no discharge. Nasal mucosa- No bleeding noted and no ulcerations observed. Erythematous Turbinates boggy. Lips- normal color, moist without cracks/lesions Oral Cavity/Palate- hard/soft palate intact without lesions, oral mucosa pink and moist. Dentition assessed missing teeth, broken teeth, poor repair. Tongue normal midline. Oropharynx- pharyngeal erythema, mallampati score class III-IV. post nasal drip. No exudate. Salivary glands- Non tender to palpation CHEST/LUNG: Inspection- symmetric chest wall no pectus deformity. Still having mild pursed lip breathing, barrel chest. No obvious distress this am, no use of accessory muscles until he became visibly agitated. Placed NC into his mouth and sucked on it. Palpation- nontender sternum, ribline. No abnormal pulsations. Auscultation- Breath sounds coarse/diminished throughout all lung torres. Much better aeration that admit, improved over yesterday as well. He is talkative, full sentences. Scattered wheezes. He is likely close to baseline with his smoking history. Tracheal sounds, bronchial sounds overlying sternum, Bronchovessicular sounds between scapulae posteriorly, vessicular breath sounds heard throughout periphery remain coarse. similar scattered wheezes/rhonchi. Adventitious sounds- wheezes, rales/crackles throughout, rhonchi present bilaterally. This appears to be ongoing. Stable/improved. May be to baseline. CARDIOVASCULAR: Auscultation- Regular rate and rhythm. No murmur noted in sitting, supine positions. Extremities- + digital clubbing, NO cyanosis, edema, or increased warmth. Refuses to wear tele. ABDOMEN: Inspection- normal and no visible pulsations. Normal contour. Auscultation- Bowel sounds normal, no abdominal bruits. Palpation/Percussion- soft, non-tender, no rebound tenderness, no rigidity (guarding), no jar tenderness, no masses. Peripheral Vascular: Upper extremity Left- Normal temperature with pink nailbeds and no ulcerations. Upper extremity Right- Normal temperature with pink nailbeds and no ulcerations. Lower extremity- Normal temperature with pink nailbeds and no ulcerations. DP pulses 1+ bilaterally. Pedal hair reduced. Normal capillary refill. Foot health is poor, needs podiatry/nails/ callus/feet. Musculoskeletal: Generalized-No generalized swelling or edema of extremities, + digital clubbing w/o cyanosis. neurovascularly intact all four extremities. Spine/Ribs- Scar lumbar spine. tenderness paraspipnal thoracic and lumbar. Neurological: General- Moves all 4 extremities symmetrically. Symmetrical face and body posture. Cranial nerves- individually evaluated II-XII and intact. PERRLA, Normal EOMI, visual/special senses appear intact, Face is symmetrical and normal sensation/movement, normal tongue, normal strength/posture of neck musculature. Neuropsych: Oriented- Person, place, time. (AAOx3), Mood/affect- Down, irritable , grumpy, pessimistic. Judgment/insight- Inappropriate. Memory-Recall intact, remote and recent memory intact. Knowledge- Age appropriate fund of knowledge, concentration and attention span normal. Lymphatic: Head/Neck- normal size and non tender to palpation. Plan: 1. Patient to be discharged home today. 2. Finish last dose of steroid 12/12/18. 3. Doxycycline 100mg tonight 12/11/18 and then twice daily 12/12/18 to complete 5 day course. 4. Rocephin 1gram today for day 4/5. Would like home health to give IM rocephin in next 24 hours x 1. 5. Home oxygen to be ordered. 3 Step <88% 12/10/18. 6. Information about pulmonary rehab provided to patient. Will need Pulmonary function testing in next few weeks if desiring to proceed with rehab. 7. Not interested in nursing care/fci/assisted living. 8. Smoking cessation highly encouraged multiple times throughout stay. Discussed risks of oxygen and smoking. Risks of fire, risks of explosion. 9. UP and moving discussed with patient. Needs to be out of bed. 10. A1C above goal. Discussed need to follow-up with primary provider about this at discharge 11. Blood pressure elevated during hospital stay: Discharge with 10mg lisinopril instead of the 2.5mg at admit. 12. Leukocytosis and hyperglycemia likely steroid effects need to have follow- up. Recommended CBC and CMP in 1 week. 13. Consider repeat Chest X-ray in 1 month. 14. Resume normal home inhalers at discharge. Discharge to home today. Personally called and talked with Jerome Burger 8:20 12/11. Patient has appt 12/17/18 09:00 am. >30 minutes spent in discharge today.
== END 2018-12-11 13:38 | disposition home or self-care (01) | DRG 194 ==
LOC: ED → MEDSURG B 01:50
PROVIDERS: ADMIT Family Medicine; ATTEND Family Medicine
DX: J18.9 Pneumonia, unspecified organism (principal); J44.1 Chronic obstructive pulmonary disease with (acute) exacerbation; R65.10 Systemic inflammatory response syndrome (SIRS) of non-infectious origin without acute organ dysfunction; E11.9 Type 2 diabetes mellitus without complications; E78.2 Mixed hyperlipidemia; D72.829 Elevated white blood cell count, unspecified; M54.9 Dorsalgia, unspecified; I48.0 Paroxysmal atrial fibrillation; F17.210 Nicotine dependence, cigarettes, uncomplicated; K21.9 Gastro-esophageal reflux disease without esophagitis; R03.0 Elevated blood-pressure reading, without diagnosis of hypertension; R05 Cough; R06.2 Wheezing; R74.8 Abnormal levels of other serum enzymes; Z79.01 Long term (current) use of anticoagulants; Z72.0 Tobacco use
CPT/HCPCS: 36415; 80048; 80053; 80306; 82550; 82553; 82803; 82962; 83036; 83605; 84145; 84484; 85007; 85025; 87040; 87070; 87449; 87502; 87651; 93005; 93010; 94640; 94761; 96365; 96366; 96375; 99285

== ENCOUNTER 2019-01-20 00:13 | Emergency (ER) ==
[2019-01-20 00:18] VITALS: TEMP 97.2; BMI 37.5
[2019-01-20] MEDS ORDERED: ASPIRIN CHEWABLE PO STA (00:28)
[2019-01-20] MEDS ORDERED: ASPIRIN CHEWABLE ONE (00:29)
[2019-01-20] MEDS ORDERED: NITROSTAT SL STA (00:30)
[2019-01-20] MEDS ORDERED: NITROSTAT SL ONE (00:31)
--- NOTE | 2019-01-20 01:28 | ED.PDOC ---
General ED Provider: Dr. PERCY MAXWELL-ER Chief Complaint: Chest Pain Stated Complaint: my chest hurts Time Seen by Physician: 00:15 Mode of Arrival: Walk-In Information Source: Patient Exam Limitations: No limitations Primary Care Provider: KIRAN LEDEZMA Nursing and Triage Documentation Reviewed and Agree: Yes Does patient meet sepsis criteria?: No System Inflammatory Response Syndrome: Not Applicable Sepsis Protocol: For patient's 13 years and over: Temp is 96.8 and below OR 101 and greater Pulse >90 BPM Resp >20/minute Acutely Altered Mental Status Are patient's symptoms suggestive of a new infection, such as: -Pneumonia -Skin, Soft Tissue -Endocarditis -UTI -Bone, Joint Infection -Implantable Device -Acute Abdominal Infection -Wound Infection -Meningitis -Blood Stream Catheter Infection -Unknown Cardiovascular Complaint Exam - Chest Pain Complaint/Exam Onset: Gradual Duration: 2 hrs Symptoms Are: Still present Initial Severity: Mild Current Severity: Mild Location: Reports: Diffuse Character: Reports: Dull, Aching Aggravating: Reports: None Alleviating: Reports: Nitro, Oxygen Associated Signs and Symptoms: Denies: Diaphoresis, Nausea, Vomiting, Fever, Palpitations, Cough, Hemoptysis, Back pain, Abdominal pain, Dizziness, Short of air, Calf pain, Calf swelling History of Healthcare-Acquired Pneumonia: Reports: No TAD Risk Factors: Reports: None Recent Stress Test: No Recent Echo/LV Function: No JVD Present: No Subcutaneous Emphysema Present: No Diminshed Breath Sounds: No Reproducible Chest Wall Pain: No Bilateral Pulses Present: No Unequal Pulses Noted: No If Risk Factors for AMI/ACS Consider: EKG, Cardiac Enzymes, Oxygen, Aspirin Review of Systems - Review Of Systems Constitutional: Reports: No symptoms Eyes: Reports: No symptoms Ears, Nose, Mouth, Throat: Reports: No symptoms Respiratory: Reports: No symptoms Cardiac: Reports: Chest pain GI: Reports: No symptoms : Reports: No symptoms Musculoskeletal: Reports: No symptoms Skin: Reports: No symptoms Neurological: Reports: No symptoms Endocrine: Reports: No symptoms Hematologic/Lymphatic: Reports: No symptoms All Other Systems: Reviewed and Negative Past Medical History - Past Medical History Previously Healthy: Yes Endocrine: Reports: DM 2, Dyslipidemia Cardiovascular: Reports: CAD, Hypertension, A-Fib Respiratory: Reports: COPD Hematological: Reports: None Gastrointestinal: Reports: GERD Genitourinary: Reports: Kidney stones Neuro/Psych: Reports: None Musculoskeletal: Reports: None Cancer: Reports: None - Surgical History General Surgical History: Reports: Stent (2), Back Surgery, Other (lipotripsy, hemorrhoid,), Unknown - Family History Family History: Reports: Unknown - Social History Smoking Status: Current every day smoker, Heavy tobacco smoker Hx Substance Use: No Alcohol Screening: None - Immunizations Tetanus Shot up to Date: (UNKNOWN) Physical Exam - Physical Exam Appearance: Well-appearing, No pain distress, Well-nourished Eyes: JESS, EOMI, Conjunctiva clear ENT: Ears normal, Nose normal, Oropharynx normal Neck: Supple Respiratory: Airway patent, Breath sounds clear, Breath sounds equal, Respirations nonlabored Cardiovascular: RRR, Pulses normal, No rub, No murmur GI/: Soft, Nontender, No masses, Bowel sounds normal, No Organomegaly Musculoskeletal: Normal strength, ROM intact, No edema, No calf tenderness Skin: Warm Neurological: Sensation intact, Motor intact, Reflexes intact, Cranial nerves intact, Alert, Oriented Psychiatric: Affect appropriate, Mood appropriate Interpretation - Radiology Interpretation Radiology Interpretation By: Radiologist Radiology Results: Negative Exam Interpreted: Portable CXR - EKG Interpretation Time of EKG #1: Rate: Normal Rhythm: Sinus Ectopy: None [place]: NL ST Segment: Normal Interpretation: nsr Re-Evaluation - Re-Evaluation Time of Re-Evaluation: Status: Unchanged Vital Signs Stable: Yes Pain Level: 0 Appearance: NAD Lungs: Clear Skin: Warm and Dry Neuro: Alert and Oriented X3 CV: RRR Critical Care Note - Critical Care Note Total Time (mins): 30 Course - Course Hematology/Chemistry: 01/20/19 00:45 01/20/19 00:45 Orders, Labs, Meds: Lab Review 01/20/19 01/20/19 01/20/19 00:45 00:45 00:45 WBC 10.04 RBC 4.84 Hgb 14.6 Hct 43.8 MCV 90.5 MCH 30.2 MCHC 33.3 RDW Coeff of Tere 16.0 H Plt Count 266 Immature Gran % (Auto) 0.4 Neut % (Auto) 46.8 Lymph % (Auto) 46.9 [place] % (Auto) 5.0 Eos % (Auto) 0.6 Baso % (Auto) 0.3 Immature Gran # (Auto) 0.0 Neut # (Auto) 4.7 Lymph # (Auto) 4.7 H [place] # (Auto) 0.5 Eos # (Auto) 0.1 Baso # (Auto) 0.0 D-Dimer (Manual) 333.01 Sodium 137.2 Potassium 4.34 Chloride 107.7 H Carbon Dioxide 16.4 L Anion Gap 17.44 BUN 17.8 Creatinine 0.75 Estimated GFR (MDRD) 105.00 BUN/Creatinine Ratio 23.73 Glucose 193.7 H Calcium 9.91 Total Bilirubin 0.43 AST 23.5 ALT 32.3 Alkaline Phosphatase 54.6 L Total Creatine Kinase 41.8 L Troponin I < 0.012 Total Protein 6.21 L Albumin 4.35 Globulin 1.86 Albumin/Globulin Ratio 2.33 Orders Category Date Time Status EKG-(ED ONLY) Stat CARDIO 01/20/19 00:28 Completed ED APPLY O2 .ONCE EMERGENCY 01/20/19 00:28 Active ED CHANCERY CLERK APPLIED .ONCE EMERGENCY 01/20/19 00:28 Active ED IV/MEDIPORT/POWERPORT .ONCE EMERGENCY 01/20/19 00:28 Active CBC W/ AUTO DIFF Stat LAB 01/20/19 00:45 Completed COMPREHENSIVE METABOLIC PANEL Stat LAB 01/20/19 00:45 Completed CREATINE KINASE Stat LAB 01/20/19 00:45 Completed D-DIMER Stat LAB 01/20/19 00:45 Completed TROPONIN I Stat LAB 01/20/19 00:45 Completed 0.9 % Sodium Chloride [Saline Flush] MEDS 01/20/19 00:28 Ordered 1 syr IVF PRN PRN Aspirin [Aspirin Chewable] MEDS 01/20/19 00:29 Discontinued 324 mg .ROUTE .STK-MED ONE Aspirin [Aspirin Chewable] MEDS 01/20/19 00:28 Discontinued 324 mg PO ONCE STA Nitroglycerin [Nitrostat] MEDS 01/20/19 00:31 Discontinued 0.4 mg SL .STK-MED ONE Nitroglycerin [Nitrostat] MEDS 01/20/19 00:30 Discontinued 0.4 mg SL ONCE STA CXR [CHEST, 1V AP ONLY] Stat RADS 01/20/19 00:29 Taken Medications Generic Name Dose Route Start Last Admin Trade Name Freq PRN Reason Stop Dose Admin Sodium Chloride 1 syr 01/20/19 00:28 Saline Flush IVF PRN PRN To flush IV Discontinued Medications Generic Name Dose Route Start Last Admin Trade Name Rajan PRN Reason Stop Dose Admin Aspirin 324 mg 01/20/19 00:28 01/20/19 00:33 Aspirin Chewable PO 01/20/19 00:29 324 mg ONCE STA Administration Nitroglycerin 0.4 mg 01/20/19 00:30 01/20/19 00:32 Nitrostat SL 01/20/19 00:31 0.4 mg ONCE STA Administration Vital Signs: Temp Pulse Resp BP Pulse Ox 01/20/19 00:14 97.2 F L 92 H 24 203/92 H 95 IRMA Risk Score IRMA Risk Score: Risk Score Odds of by 30D 0 0.1 (0.1-0.2) 1 0.3 (0.2-0.3) 2 0.4 (0.3-0.5) 3 0.7 (0.6-0.9) 4 1.2 (1.0-1.5) 5 2.2 (1.9-2.6) 6 3.0 (2.5-3.6) 7 4.8 (3.8-6.1) Departure - Departure Time of Disposition: :28 Disposition: TSF SHORT-TRM HOSP Discharge Problem: Chest pain Instructions: Chest Pain (ED) Condition: Good Pt referred to PMD for follow-up: No IPMP verified?: No Allergies/Adverse Reactions: Allergies amitriptyline HCl [From Elavil] Adverse Reaction (Verified 01/20/19 00:18) "I GO NUTS" Home Medications: Ambulatory Orders Aspirin [Aspirin EC] 81 mg PO DAILYWM 05/15/15 Atenolol 25 mg PO DAILY 05/15/15 Budesonide/Formoterol Fumarate [Symbicort 160-4.5 Mcg Inhaler] 2 puff INH BID Dabigatran Etexilate Mesylate [Pradaxa] 150 mg PO BID 05/15/15 Fenofibrate Nanocrystallized [Fenofibrate] 145 mg PO BEDTIME 05/15/15 Hydrocodone/Acetaminophen [Hydrocodone-Acetamin 10-325 mg] 10 - 325 mg PO TID Metformin HCl [Metformin ER Osmotic] 1,000 mg PO BID 05/15/15 Omeprazole [Prilosec] 20 mg PO QDAC 05/15/15 Pravastatin Sodium [Pravachol] 20 mg PO DAILY 05/15/15 Tadalafil [Cialis] 5 mg PO QID PRN 05/15/15 Albuterol Sulfate [Ventolin Hfa] 2 inh IH QID 12/08/18 Diltiazem HCl [Diltiazem ER] 180 mg PO BEDTIME 12/08/18 Gabapentin 400 mg PO TID 12/08/18 Icosapent Ethyl [Vascepa] 2 gm PO BID 12/08/18 Insulin Detemir [Levemir] 45 unit SUBCUT BID 12/08/18 Liraglutide [Victoza 2-Kike] 1.8 mg SQ DAILY 12/08/18 Umeclidinium [place] [Incruse Ellipta] 1 inh IH DAILY 12/08/18 Albuterol Sulfate 0.083% Neb [Albuterol 0.083% Neb] 1 vial NEB RTQ4H 5 Days #30 vial.neb 12/11/18 Ceftriaxone Sodium [Rocephin] 1 gm IJ ONCE 1 Days #1 vial 12/11/18 Doxycycline Hyclate 100 mg PO Q12HR 1 Days #3 capsule 12/11/18 Lisinopril 10 mg PO DAILY 30 Days #30 tablet 12/11/18 Prednisone 40 mg PO DAILYWM 1 Days #2 tablet 12/11/18 Transfer Form Completed: Yes Disposition Discussed With: Patient, Family
[2019-01-20 01:33] VITALS: BP 165/71
--- NOTE | 2019-01-20 07:10 | DI ---
EXAM: CHEST FRONTAL VIEW HISTORY: Chest pain. COMPARISON: 12/08/2018 FINDINGS: Heart size and mediastinum remain within normal limits. Minimal discoid density in the left base. Lungs are otherwise unremarkable. Normal vascularity. No pneumothorax, pleural fluid or acute bony deformity. IMPRESSION: 1. Probable mild left base atelectasis. Otherwise within normal limits.
== END 2019-01-20 02:05 | disposition short-term general hospital (02) ==
LOC: ED 00:13
DX: R07.9 Chest pain, unspecified (principal); E11.9 Type 2 diabetes mellitus without complications; E78.5 Hyperlipidemia, unspecified; I25.10 Atherosclerotic heart disease of native coronary artery without angina pectoris; I10 Essential (primary) hypertension; F17.210 Nicotine dependence, cigarettes, uncomplicated; Z79.899 Other long term (current) drug therapy
CPT/HCPCS: 36415; 80053; 82550; 84484; 85025; 85379; 93005; 93010; 99285

== ENCOUNTER 2019-01-20 02:06 | Outpatient (CLI) ==
[2019-01-20 00:18] VITALS: BMI 37.5
== END 2019-01-20 02:30 | disposition short-term general hospital (02) ==
LOC: AMBL 02:06
PROVIDERS: ATTEND Family Medicine
DX: R07.9 Chest pain, unspecified (principal); Z95.5 Presence of coronary angioplasty implant and graft